=== PATIENT | female | born 1990 | race Caucasian/White ===

== ENCOUNTER 2021-09-02 18:24 | Emergency (ER) | payer OTHER, SELFPAY | END 2021-09-02 19:54 | disposition left against medical advice (07) | PROVIDERS: Emergency Provider Emergency Medicine; PCP Internal Medicine | DX: R42 Dizziness and giddiness (principal) ==

== ENCOUNTER 2021-09-03 11:36 | Emergency (ER) | payer OTHER, SELFPAY ==
--- NOTE | ~2021-09-03 | CT_ITS ---
EXAMINATION: CT HEAD WITHOUT CONTRAST CLINICAL INFORMATION: Worsening vertigo and headache. COMPARISON: None TECHNIQUE: Contiguous axial imaging was performed from the skull base to vertex without intravenous administration of contrast. This CT examination was performed using dose optimization techniques as appropriate, variously including the following: *Automated exposure control *Adjustment of mA and/or kV according to patient size (this includes techniques or standardized protocols for targeted exams where dose is matched to indication/reason for exam; i.e. extremities or head) *Use of iterative reconstruction technique DLP: 684.2 mGy-cm FINDINGS: There is no evidence of acute intracranial hemorrhage or territorial infarction. No abnormal mass effect or midline shift is seen. Mcwilliams to white matter differentiation is well preserved. No extra-axial fluid collections are identified. The ventricles are normal in size. There is no abnormal attenuation within the brain parenchyma. The osseous structures and soft tissues are normal. The mastoid air cells and visualized portions of the paranasal sinuses are well aerated. CT/CT head/brain wo con IMPRESSION: No acute intracranial pathology.
[2021-09-03 12:03] VITALS: BP 114/77; PULSE 66; RESP 16; TEMP 36.4; O2SAT 99; BMI 27.4
[2021-09-03] MEDS: LORazepam 1 MG TABLET PO (13:00)
--- NOTE | 2021-09-03 13:46 | ED_ITS ---
HPI - Neck Pain/Injury General Chief Complaint: Neck Pain/Injury Stated Complaint: NECK PAIN VERTIGO Time Seen by Provider: 09/03/21 12:26 Source: patient Mode of arrival: ambulatory History of Present Illness HPI Narrative: 30-year-old female with a past medical history of anemia, migraines, neck pain, vertigo, to the ED complaining of acute on chronic neck pain and acute on chronic vertigo x weeks. Reports her neck pain exacerbates he r room spinning vertigo. Dizziness is elicited on position changes/head movement. Admits symptoms have been worsening over the past 3 weeks with associated headaches and paresthesias in hands. Denies visual change/loss, nausea, vomiting, CP/SOB, abdominal pain, LE edema, recent travel, weakness Reports she sees an ENT and neurologist, has been getting cortisone shots and neck. Denies taking any vertigo medications at home. Takes today Tizanidine occasionally for neck pain. Denies direct injury/trauma or fall, urinary incontinence/retention. MD complaint: neck pain Related Data Previous Rx's Medication Instructions Recorded meclizine 25 mg tablet 25 mg PO TID PRN #14 tab 09/03/21 Allergies Allergy/AdvReac Type Severity Reaction Status Date / Time acetaminophen [From Percocet] Allergy Dizziness Verified 09/03/21 12:07 oxycodone [From Percocet] Allergy Dizziness Verified 09/03/21 12:07 Review of Systems Review of Systems: Constitutional: No Fever, No Chills, No Fatigue, No Malaise ENT/Mouth: No Ear Pain, No Nasal Congestion, No Hoarseness, No sore throat, No Rhinorrhea Eyes: No Eye Pain, No Swelling, No Redness, No Vision Changes Cardiovascular: No Chest Pain, No SOB, No Palpitations Respiratory: No Cough, No Dyspnea Gastrointestinal: No Nausea, No Vomiting, No Diarrhea, No Constipation, No Abdominal pain Genitourinary: No Dysuria, No Urinary Frequency, No Hematuria, No Urinary Incontinence/retention, No Flank Pain Musculoskeletal: +neck pain, No Myalgias, No Joint Swelling Skin: No Skin Lesions, No rash Neuro: No Weakness, No Numbness, + Paresthesias, No Loss of Consciousness, + Dizziness, + Headache Yes all other systems are reviewed and are negative Neurologic: Denies Abnormal speech present [facility] Past Medical History Attestation statement: The following information was validated with the patient. Medical History (Updated 09/03/21 @ 15:06 by KENIA Mccarthy) Anemia Migraines Neck pain Vertigo Social History Social History Advance Directives: No Advance Directives Information Provided: No Patient : No Physical Exam Vital Signs: Vital Signs: Last Vital Signs Temp 97.5 F 09/03/21 12:03 Pulse 66 09/03/21 12:03 Resp 16 09/03/21 12:03 BP 114/77 09/03/21 12:03 Pulse Ox 99 09/03/21 12:03 Body Mass Index 27.4 Const: General: cooperative, healthy appearing and no acute distress Orientation/consciousness: patient oriented x3 Limitations: no limitations HENMT: Head: Yes normal to inspection and Yes atraumatic Ears: hearing grossly normal bilaterally General nose exam: Normal external nose present Face and sinus: Yes normal facial exam Mouth: Normal oral and palatal mucosa present Eyes: General: appearance normal, both eyes and all related structures Pupils: Equal, round and reactive pupils present EOM: EOMs intact bilaterally Neck: Other: No midline cervical spinous tenderness. + bilateral paraspinal of the skin tenderness Neck: Yes normal visual inspection and Yes no meningeal signs Resp: Effort & Inspection: normal respiratory effort and no respiratory distress Cardio: Rate: regular rate Heart sounds: S1 normal heart sound present and S2 normal heart sound present GI: Inspection: Yes normal to inspection Palpation (GI): Soft to palpation, nontender, no guarding and not rigid Back/Spine/Pelvis: Other: No midline thoracic/lumbar spinous tenderness Skin: Rashes: no rashes Wounds: no wounds Neuro: Other: Dizziness elicited on position changes General: patient oriented x3, gait normal, tone normal, moves all extremities, no meningeal signs, no focal motor deficits and CN's II-XI intact bilaterally Cranial nerves: Yes Equal, round and reactive pupils present Cognition (Neuro): normal cognition Speech: No Abnormal speech present Gait exam (Neuro): Normal gait present Motor exam (neuro): 5/5 motor strength present throughout Coordination: [id number] test normal Romberg Test: Negative Extrem: General: Yes normal to inspection Course Course Course Narrative: -patient initially refusing meclizine. Will try Ativan for dizziness CT head/brain wo con IMPRESSION: No acute intracranial pathology. > patient reports mild symptomatic improvement after p.o. Ativan. Is now agreeable to take p.o. meclizine. Had lengthy discussion about worrisome signs and symptoms/strict return precautions and need follow-up MDM - Neck Pain/Injury MDM Narrative Medical decision making narrative: 30-year-old female with a past medical history of anemia, migraines, neck pain, vertigo, to the ED complaining of acute on chronic neck pain and acute on chronic vertigo x weeks. On exam VSS, NAD/well-appearing. Dizziness is positional, and elicited on position changes. No midline spinous tenderness throughout. Likely acute on chronic symptoms and BPPV. Low concern for SAH, meningitis/encephalitis or CVT. Patient/partner requesting head CT Discussed with patient she needs to follow-up with her ENT/neurologist and PCP my symptoms are acute on chronic which she has been dealing with for years Plan: Head CT, symptomatic treatment, reassess Medical Records Attestation: I reviewed the patient's medical records. Lab Data Attestation: I reviewed the patient's lab results. Discharge Plan Discharge Clinical Impression: Chronic vertigo, Chronic neck pain Patient Disposition: Home, Self-Care Instructions: Dizziness (ED), Chronic Neck Pain (DC) Additional Instructions: Your head CT was unremarkable Meclizine will help with your dizziness Is important for you to continue follow-up with your ENT specialist and neurologist. Continue taking home prescribed medications If her symptoms persist or worsen, develops weakness, numbness, visual change/loss, constant or worsening headaches please return to the ED immediately Prescriptions: New meclizine 25 mg tablet 25 mg PO TID PRN (Reason: dizziness) Qty: 14 RF: 0 Referrals: Tomy Maria [Physician] - 2 days Ciara Ahmadi PA-C [Physician [employer] Super[employer]] - 2 days Interventions: ED Discharge Assessment Last Done: 09/03/21 15:14 Discharge Date/Time: 09/03/21 15:14
[2021-09-03] MEDS: Meclizine HCl 25 MG TABLET PO (15:08)
== END 2021-09-03 15:14 | disposition home or self-care (01) ==
PROVIDERS: Emergency Provider Emergency Medicine; PCP Internal Medicine
DX: R42 Dizziness and giddiness (principal); G89.29 Other chronic pain; M54.2 Cervicalgia
CPT/HCPCS: 70450; 99283; 99284

== ENCOUNTER → 2021-11-28 09:03 | Outpatient (BNVA) | payer OTHER, SELFPAY | PROVIDERS: PCP Internal Medicine; Visit Provider Nurse Practitioner Family | DX: G47.9 Sleep disorder, unspecified (principal); G47.19 Other hypersomnia; R25.1 Tremor, unspecified; H81.10 Benign paroxysmal vertigo, unspecified ear; R43.8 Other disturbances of smell and taste; U09.9 Post COVID-19 condition, unspecified | CPT/HCPCS: 99212 ==

== ENCOUNTER → 2021-12-07 14:01 | Outpatient (BNVA) | payer OTHER, SELFPAY | PROVIDERS: PCP Internal Medicine; Visit Provider Nurse Practitioner Family | DX: G43.109 Migraine with aura, not intractable, without status migrainosus (principal); H81.10 Benign paroxysmal vertigo, unspecified ear | CPT/HCPCS: 99212 ==

== ENCOUNTER → 2022-01-12 14:07 | Outpatient (REF) | payer OTHER, SELFPAY | LOC: HO.SL 14:07 | PROVIDERS: Visit Provider Nurse Practitioner Family | DX: R06.83 Snoring (principal); G47.9 Sleep disorder, unspecified | CPT/HCPCS: 95806 ==

== ENCOUNTER → 2022-03-08 08:34 | Outpatient (BNVA) | payer OTHER, SELFPAY | PROVIDERS: PCP Internal Medicine; Visit Provider Nurse Practitioner Family | DX: Z13.89 Encounter for screening for other disorder (principal) ==

== ENCOUNTER → 2022-07-31 09:01 | Outpatient (BNVA) | payer OTHER, SELFPAY | PROVIDERS: PCP Internal Medicine; Visit Provider Nurse Practitioner Family | DX: G43.109 Migraine with aura, not intractable, without status migrainosus (principal); M54.2 Cervicalgia; H81.10 Benign paroxysmal vertigo, unspecified ear; R51.9 Headache, unspecified | CPT/HCPCS: 99212 ==

== ENCOUNTER → 2022-09-29 07:35 | Outpatient (BNVA) | payer OTHER, SELFPAY | PROVIDERS: PCP Internal Medicine; Visit Provider Student in an Organized Health Care Education/Training Program | DX: M79.7 Fibromyalgia (principal) | CPT/HCPCS: 99202 ==

== ENCOUNTER 2022-10-05 08:00 | Outpatient (RCR) | payer OTHER, SELFPAY ==
--- NOTE | 2022-11-08 09:17 | MHC.PT.DC ---
[facility] [place] Office [place] Office [place] Office [address] Shirley Ma [address] [facility] [phone] F: [phone] F: [phone] F: [phone] F: [phone] Physical Therapy Discharge Report Diagnosis: VERTIGO, MIGRAINES, NECK PAIN Date of Surgery: Date of Evaluation: 09/07/22 Date of Discharge: 10/11/22 Treatments to Date: 7 Cancellations to Date: 1 No Shows to Date: 2 Discharge Status: Discharge Summary: At last attended visit, Iraida had some improvement in symptoms and reported that TENS did improve her pain. We recommended that she complete her HEP more frequently and pursue an OTC home TENS unit. Electronically signed by: Angi Hackett PT, DPT Please sign and return to therapist. Thank you for your referral.
== END 2022-11-08 09:17 | disposition home or self-care (01) ==
LOC: HO.PT 08:00
PROVIDERS: PCP Internal Medicine; Visit Provider Nurse Practitioner Family
DX: G43.109 Migraine with aura, not intractable, without status migrainosus (principal); H81.10 Benign paroxysmal vertigo, unspecified ear; M54.2 Cervicalgia
CPT/HCPCS: 97110; 97112; 97140; 97162

== ENCOUNTER 2022-11-10 11:59 | Outpatient (REF) | payer OTHER, SELFPAY ==
[2022-11-10 17:19] LABS: Influenza A PCR NEGATIVE (Negative); Influenza B PCR NEGATIVE (Negative); Resp Syncy Virus RNA Qual PCR NEGATIVE (Negative); SARS COV2 PCR INHOUSE NEGATIVE (Negative)
== END 2022-11-10 12:00 | disposition home or self-care (01) ==
LOC: HO.LAB 11:59
PROVIDERS: Visit Provider Family Medicine
DX: Z20.822 Contact with and (suspected) exposure to COVID-19 (principal); R05.9 Cough, unspecified
CPT/HCPCS: 0241U

== ENCOUNTER → 2022-11-27 22:31 | Outpatient (REF) | payer OTHER, SELFPAY | LOC: HO.SL 22:31 | PROVIDERS: PCP Internal Medicine; Visit Provider Nurse Practitioner Family | DX: R06.83 Snoring (principal); R51.9 Headache, unspecified; G47.19 Other hypersomnia | CPT/HCPCS: 95810 ==

== ENCOUNTER 2023-06-12 12:39 | Emergency (ER) | payer OTHER, SELFPAY ==
--- NOTE | ~2023-06-12 | XR_ITS ---
EXAMINATION: XR CHEST CLINICAL INFORMATION: Shortness of breath. COMPARISON: None available. TECHNIQUE: 2 views of the chest were obtained. FINDINGS: No significant abnormality is noted involving the heart, lungs, mediastinum, bony thorax or soft tissues. XR/XR chest 2V IMPRESSION: No acute cardiopulmonary process.
--- NOTE | 2023-06-12 12:40 | ECG_ITS ---
Test Reason : cp sob Blood Pressure : / mmHG Vent. Rate : 069 BPM Atrial Rate : 069 BPM P-R Int : 160 ms QRS Dur : 082 ms QT Int : 368 ms P-R-T Axes : 033 070 018 degrees QTc Int : 394 ms Normal sinus rhythm Normal ECG No previous ECGs available Referred By: Dez Goldstein Electronically Signed By:MONICA MCGRAW MD
--- NOTE | 2023-06-12 12:55 | ED.GENADULT ---
HPI - General Adult General Chief complaint: Arrhythmia/Palpitations Stated complaint: Heart Palpitations SOB Time Seen by Provider: 06/12/23 17:21 Source: patient Mode of arrival: ambulatory Limitations: no limitations History of Present Illness HPI narrative: Patient comes in the emergency room complaining of palpitations. Patient states that for last couple of days she has had intermittent extra beats. Patient denies chest pain or shortness of breath. Patient states that recently she was started on Advair, singular, prednisone and constantly takes albuterol. Patient states that she has no shortness of breath, her medications are helping control her asthma. Related Data Home Medications Medication Instructions Recorded Confirmed albuterol sulfate 90 mcg/actuation 1 inh inhalation QID 11/28/21 07/31/22 aerosol inhaler (ProAir HFA) epinephrine 0.15 mg/0.15 mL subcut 11/28/21 07/31/22 auto-injector (for 33 to 66 lb patients) fluticasone propionate 50 1 spray intranasal DAILY 11/28/21 07/31/22 mcg/actuation nasal spray,suspension (Flonase Allergy Relief) cholecalciferol (vitamin D3) 10 10 mcg PO DAILY 03/08/22 05/05/22 mcg (400 unit) capsule cephalexin 500 mg capsule 500 mg PO QID 09/29/22 cyclobenzaprine 5 mg tablet 5 mg PO TID PRN 11/10/22 Previous Rx's Medication Instructions Recorded atogepant 30 mg tablet 30 mg PO .COMPLEX 30 days #30 tabs 03/08/22 frovatriptan 2.5 mg tablet 2.5 mg PO .COMPLEX PRN migraine 05/16/22 headache 30 days #12 tabs fremanezumab-vfrm 225 mg/1.5 mL 225 mg (1.5 mL) subcut .COMPLEX 30 05/26/22 subcutaneous auto-injector (Ajovy) days #1.5 mL rizatriptan 10 mg tablet 5 - 10 mg PO Q2H PRN migraine 06/12/22 headache 30 days #12 tabs azithromycin 250 mg tablet See Rx Instructions PO .COMPLEX 5 11/10/22 (Zithromax Z-Armani) days #6 tabs prednisone 20 mg tablet 40 mg PO DAILY 5 days #10 tabs 11/10/22 Allergies Allergy/AdvReac Type Severity Reaction Status Date / Time oxycodone [From Percocet] Allergy Dizziness Verified 11/10/22 11:34 Review of Systems Review of Systems: Constitutional : No Weight loss, No Fever, No Chills, No Night Sweats, No Fatigue, No Malaise ENT/Mouth : No Hearing loss, No Ear Pain, No Nasal Congestion, No Sinus Pain, No Hoarseness, No sore throat, No Rhinorrhea, No Swallowing Difficulty Eyes: No Eye Pain, No Swelling, No Redness, No Foreign Body, No Discharge, No Vision Changes Cardiovascular : No Chest Pain, No SOB, No Dyspnea on Exertion, No Orthopnea, No Edema, complaining of Palpitations Respiratory : No Cough, No Sputum, No Wheezing, No Smoke Exposure, No Dyspnea Gastrointestinal : No Nausea, No Vomiting, No Diarrhea, No Constipation, No abdominal Pain, No Hematochezia, No Melena Genitourinary : no irregular bleeding, No Dysuria, No Urinary Frequency, No Hematuria, No Urinary Incontinence, No Urgency, No Flank Pain, No Urinary Flow Changes, No Hesitancy Musculoskeletal : No joint pain, No Myalgias, No Joint Swelling Skin : No Skin Lesions, No rash Neuro : No Weakness, No Numbness, No Paresthesias, No Loss of Consciousness, No Dizziness, No Headache Psych : No Anxiety/Panic, No Depression, No SI/HI/AH/VH, No Social Issues, Heme/Lymph: No Bruising, No Bleeding,No Lymphadenopathy Endocrine : No Polyuria, No Polydipsia, No Temperature Intolerance PMFSH Past Medical History Medical History Anemia Migraines Neck pain Vertigo Surgical History H/O nasal septoplasty H/O wisdom tooth extraction Family History Family History Mother Bipolar 1 disorder Diabetes Maternal Grandmother COPD (chronic obstructive pulmonary disease) Other Family history of heart disease Family history of lung disease Social History Social History Household Members: Significant Other Alcohol intake: current Alcohol intake frequency: a few times a week Patient Tobacco Use Status: Never used Tobacco Current occupational status: employed 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 Oriented X3. No acute distress. Eyes: Pupils equal, round and reactive to light. ENT: Pharynx normal. Neck: Normal inspection. Neck supple. No lymph nodes noted. No crepitus CVS: Normal heart rate and rhythm., very occasional PVCs without any pattern, Pulses normal. Normal S1 and S2 Respiratory: No respiratory distress. Breath sounds normal. No Wheezing. No rales Abdomen: Soft and nontender. No rigidity. No distention. Skin: Skin warm and dry. Normal skin color. Normal skin turgor. Extremities: No lower extremity edema. No Lacerations. No Rash Neuro: Oriented X 3. No motor deficit. No sensory deficit. Moving all extremities. No slurred speech. CN 2 through 12 grossly intact Psych: calm, cooperative, normal affect Course Course Course Narrative: RME- 32-year-old female presents for evaluation of shortness of breath, palpitations. She saw her doctor at the end of last week and was diagnosed with ?bronchitis. ? She was sent home with prednisone and a new inhaler. Plan for labs, chest x-ray, EKG. Patient is not on control Medical Decision Making Medical Decision Making MDM Narrative: -when patient arrived, patient reported that her Apple watch said that she has atrial fibrillation. Patient complaining of palpitations. Initially admission was considered. -EKG my interpretation: Normal sinus rhythm, heart rate 69, no ST segment depression or elevation, no T-wave inversion, QTC 394 -I discussed the physical exam with the patient, patient's airway is completely open, no wheezing -patient does have occasional PVCs, nonsustained -this is likely as a side effect of her medications. Patient instructed to keep taking her medications as it is important to keep her airway open -patient already stopped taking prednisone couple of days ago, no need to restart at this time, airway open. -patient keeps having PVCs, patient instructed to follow-up with the primary care physician, patient may need a referral for a Holter monitor -also, I discussed with the patient that apple watches are not sensitive enough to determine a specific rhythm. Patient has been on the monitor for hours and she does have PVCs but no atrial fibrillation. Differential Diagnosis Differential Diagnoses: The differential diagnosis associated with the presentation includes (PVCs, tachycardia, SVT, hyperthyroidism) Admission/Observation Consideration of admission/observation: Escalation of care including admission/observation considered Lab Data MDM Lab Attestation statement: I reviewed the patient's lab results. (Interpretation of labs, troponin negative) 06/12/23 15:20 06/12/23 15:21 Labs: Lab Results 06/12/23 06/12/23 06/12/23 Range/Units 15:20 15:20 15:20 WBC 7.5 (4.8-10.8) X10*3/uL RBC 4.62 (4.20-5.50) X10*6/uL Hgb 12.8 (12.0-16.0) g/dl Hct 39.1 (37.0-47.0) % MCV 84.6 (80.0-98.0) fL MCH 27.7 (27.0-33.0) pg MCHC 32.7 (31.0-35.0) g/dl RDW 14.0 (11.0-16.0) % Plt Count 251 (160-400) X10*3/uL MPV 11.3 (9.4-12.3) fL Immature Gran % (Auto) 0.7 H (0.0-0.4) % Neut % (Auto) 51.6 (45-73) % Lymph % (Auto) 39.3 (20-40) % [place] % (Auto) 6.9 (2-11) % Eos % (Auto) 1.2 (0-4) % Baso % (Auto) 0.3 (0-2) % Lymph # (Auto) 3.0 (1.2-4.9) X10*3/uL [place] # (Auto) 0.5 (0.1-1.2) X10*3/uL Eos # (Auto) 0.1 (0.0-0.4) X10*3/uL Baso # (Auto) 0.0 (0.0-0.2) X10*3/uL Abs Immat Gran (auto) 0.05 H (0.00-0.03) X10*3/uL Absolute Neuts (auto) 3.9 (2.0-8.3) x10*3/uL Absolute Nucleated RBC 0.000 (0.0-0.012) X10*3/uL Nucleated RBC % (auto) 0.0 (0.0-0.2) /100WBC PT 11.5 (11.1-13.3) SEC INR 0.9 (0.9-1.1) APTT 26.0 (26.0-36.4) SEC Sodium (135-145) mmol/L Potassium (3.3-5.1) mmol/L Chloride (96-108) mmol/L Carbon Dioxide (22-29) mmol/L Anion Gap (12-20) BUN (9-16) mg/dL Creatinine (0.5-1.4) mg/dL Estim Creat Clear Calc Estimated GFR Random Glucose (60-115) mg/dL Calcium (8.4-10.2) mg/dL Magnesium (1.6-2.6) mg/dL Total Bilirubin (0.0-1.0) mg/dL AST (5-31) U/L ALT (0-31) U/L Alkaline Phosphatase (39-117) U/L Troponin I High Sens < 2.7 (<3.5-17.0) ng/L Total Protein (6.5-8.0) g/dL Albumin (3.5-5.0) g/dL Lipase (8-78) U/L TSH (0.32-4.0) uIU/mL 06/12/23 Range/Units 15:21 WBC (4.8-10.8) X10*3/uL RBC (4.20-5.50) X10*6/uL Hgb (12.0-16.0) g/dl Hct (37.0-47.0) % MCV (80.0-98.0) fL MCH (27.0-33.0) pg MCHC (31.0-35.0) g/dl RDW (11.0-16.0) % Plt Count (160-400) X10*3/uL MPV (9.4-12.3) fL Immature Gran % (Auto) (0.0-0.4) % Neut % (Auto) (45-73) % Lymph % (Auto) (20-40) % [place] % (Auto) (2-11) % Eos % (Auto) (0-4) % Baso % (Auto) (0-2) % Lymph # (Auto) (1.2-4.9) X10*3/uL [place] # (Auto) (0.1-1.2) X10*3/uL Eos # (Auto) (0.0-0.4) X10*3/uL Baso # (Auto) (0.0-0.2) X10*3/uL Abs Immat Gran (auto) (0.00-0.03) X10*3/uL Absolute Neuts (auto) (2.0-8.3) x10*3/uL Absolute Nucleated RBC (0.0-0.012) X10*3/uL Nucleated RBC % (auto) (0.0-0.2) /100WBC PT (11.1-13.3) SEC INR (0.9-1.1) APTT (26.0-36.4) SEC Sodium 140 (135-145) mmol/L Potassium 3.5 (3.3-5.1) mmol/L Chloride 104 (96-108) mmol/L Carbon Dioxide 26 (22-29) mmol/L Anion Gap 14 (12-20) BUN 12 (9-16) mg/dL Creatinine 0.74 (0.5-1.4) mg/dL Estim Creat Clear Calc 110.9 Estimated GFR > 60 Random Glucose 80 (60-115) mg/dL Calcium 9.0 (8.4-10.2) mg/dL Magnesium 2.3 (1.6-2.6) mg/dL Total Bilirubin 0.9 (0.0-1.0) mg/dL AST 14 (5-31) U/L ALT 12 (0-31) U/L Alkaline Phosphatase 49 (39-117) U/L Troponin I High Sens (<3.5-17.0) ng/L Total Protein 7.2 (6.5-8.0) g/dL Albumin 4.2 (3.5-5.0) g/dL Lipase 44 (8-78) U/L TSH 1.03 (0.32-4.0) uIU/mL Independent Interpretation I performed an independent interpretation of an: Plain X-Ray (My interpretation of chest x-ray: No infiltrates) Radiology Impression Discussion of test interpretation with radiology: I have reviewed the radiologist's reading. Radiologist Impression: FINDINGS: No significant abnormality is noted involving the heart, lungs, mediastinum, bony thorax or soft tissues. XR/XR chest 2V IMPRESSION: No acute cardiopulmonary process. Prescription Management I considered prescription management with: Other (Consider starting metoprolol. However, patient is on several new medications for asthma which may be contributing to her symptoms. Patient will follow-up with her primary care physician) Chronic Conditions Patient?s care impacted by: Other (Asthma) Discharge Plan Discharge Clinical Impression: Frequent PVCs Patient Disposition: Home, Self-Care Instructions: Heart Palpitations (ED) Additional Instructions: Please follow-up with your primary care physician tomorrow. If you have any worsening or new symptoms, please return to the emergency room or call 911 Prescriptions: No Action frovatriptan 2.5 mg tablet 2.5 mg PO .COMPLEX PRN (Reason: migraine headache) 30 Days Qty: 12 3RF Rx Instructions: start 2 days prior to onset of menses, may take up to 6 days Ajovy Autoinjector 225 mg/1.5 mL auto-injector 225 mg subcut .COMPLEX 30 Days Qty: 1.5 6RF Rx Instructions: 225 mg subcut monthly; rizatriptan 10 mg tablet 5 - 10 mg PO Q2H PRN (Reason: migraine headache) 30 Days Qty: 12 6RF Rx Instructions: max 2 tabs per day or 4 tabs per week (may take with Aleve) cyclobenzaprine 5 mg tablet 5 mg PO TID PRN azithromycin [Zithromax Z-Armani] 250 mg tablet See Rx Instructions PO .COMPLEX 5 Days Qty: 6 0RF Rx Instructions: take 500 mg today (day 1), then 250 mg for 4 days (days 2-5) PO prednisone 20 mg tablet 40 mg PO DAILY 5 Days Qty: 10 0RF epinephrine 0.15 mg/0.15 mL auto-injector subcut fluticasone propionate [Flonase Allergy Relief] 50 mcg/actuation spray,suspension 1 spray intranasal DAILY Rx Instructions: administer into each nostril albuterol sulfate [ProAir HFA] 90 mcg/actuation HFA aerosol inhaler 1 inh inhalation QID cholecalciferol (vitamin D3) 10 mcg (400 unit) capsule 10 mcg PO DAILY atogepant 30 mg tablet 30 mg PO .COMPLEX 30 Days Qty: 30 6RF Rx Instructions: 30 mg PO nightly; Quilipta complete form completed. cephalexin 500 mg capsule 500 mg PO QID
[2023-06-12 12:56] VITALS: BP 127/84; PULSE 67; RESP 18; TEMP 36.1; O2SAT 99; BMI 26.2
[2023-06-12 15:25] LABS: MANUAL DIFF FLAG NO
[2023-06-12 15:30] LABS: Basophils Percent Auto 0.3 % (0-2); Eosinophils Absolute Auto 0.1 X10*3/uL (0.0-0.4); Eosinophils Percent Auto 1.2 % (0-4); Hematocrit 39.1 % (37.0-47.0); Hemoglobin 12.8 g/dl (12.0-16.0); Imm Gran Abs Auto 0.05 X10*3/uL (0.00-0.03); Imm Gran Pct Auto 0.7 % (0.0-0.4); Lymphocytes Percent Auto 39.3 % (20-40); Mean Corpuscular HGB Conc 32.7 g/dl (31.0-35.0); Mean Corpuscular Hemoglobin 27.7 pg (27.0-33.0); Mean Corpuscular Volume 84.6 fL (80.0-98.0); Mean Platelet Volume 11.3 fL (9.4-12.3); Monocytes Absolute Auto 0.5 X10*3/uL (0.1-1.2); Monocytes Percent Auto 6.9 % (2-11); Neutrophils Absolute Auto 3.9 x10*3/uL (2.0-8.3); Neutrophils Percent Auto 51.6 % (45-73); Platelet Count 251 X10*3/uL (160-400); Red Blood Count 4.62 X10*6/uL (4.20-5.50); White Blood Count 7.5 X10*3/uL (4.8-10.8)
[2023-06-12 15:33] LABS: INTERNATIONAL NORM RATIO 0.9 (0.9-1.1); Prothrombin Time 11.5 SEC (11.1-13.3)
[2023-06-12 16:25] LABS: Alanine Aminotransferase 12 U/L (0-31); Albumin Level 4.2 g/dL (3.5-5.0); Alkaline Phosphatase 49 U/L (39-117); Anion Gap 14 (12-20); Aspartate Amino Transferase 14 U/L (5-31); Bilirubin Total 0.9 mg/dL (0.0-1.0); Blood Urea Nitrogen 12 mg/dL (9-16); Carbon Dioxide 26 mmol/L (22-29); Chloride 104 mmol/L (96-108); Creatinine Clr Calc Pharmacy 110.9; Estimated Glomerular Filt Rate > 60; Glucose Random 80 mg/dL (60-115); Lipase 44 U/L (8-78); Magnesium 2.3 mg/dL (1.6-2.6); Potassium 3.5 mmol/L (3.3-5.1); Sodium 140 mmol/L (135-145); Total Protein 7.2 g/dL (6.5-8.0)
[2023-06-12 16:26] LABS: Troponin-I High Sensitivity < 2.7 ng/L (<3.5-17.0)
[2023-06-12 16:40] LABS: TSH reflex Free T4 1.03 uIU/mL (0.32-4.0)
[2023-06-12 17:18] VITALS: BP 120/68; PULSE 68; RESP 18; TEMP 37.1; O2SAT 100
--- NOTE | 2023-06-12 17:25 | PC.NURSE ---
pt a&ox3. respirations even and unlabored. pt reports increasing shortness of breath and chest pain within the last few days. pt was put on an inhaler and prednisone from PCP. pt normal sinus on tele. vss.
== END 2023-06-12 17:49 | disposition home or self-care (01) ==
LOC: HO.ED 17:47
PROVIDERS: Physician Assistant; Emergency Provider Emergency Medicine; PCP Internal Medicine
DX: I49.3 Ventricular premature depolarization (principal); R00.2 Palpitations; J45.909 Unspecified asthma, uncomplicated; H81.10 Benign paroxysmal vertigo, unspecified ear; Z79.899 Other long term (current) drug therapy
CPT/HCPCS: 36415; 71046; 80053; 83690; 83735; 84443; 84484; 85025; 85610; 85730; 93005; 99283; 99284

== ENCOUNTER → 2023-06-12 12:40 | Outpatient (BNV) | payer OTHER, SELFPAY | PROVIDERS: PCP Internal Medicine; Visit Provider Internal Medicine Cardiovascular Disease | DX: R07.9 Chest pain, unspecified (principal); R06.02 Shortness of breath | CPT/HCPCS: 93010 ==

== ENCOUNTER 2023-09-21 17:57 | Emergency (ER) | payer OTHER, SELFPAY ==
--- NOTE | 2023-09-21 18:05 | ED_ITS ---
HPI - General Adult General Chief complaint: General Medical Stated complaint: feels like fainting Time Seen by Provider: 09/21/23 20:34 Source: patient Mode of arrival: ambulatory Limitations: no limitations History of Present Illness HPI narrative: Patient is a 32 year old assigned female at with a history of migraines and vertigo presenting to the emergency department today with vomiting and feeling off . Patient states that this morning she woke up and vomited then felt off all day. Patient denies any current dizziness, lightheadedness, abdominal pain, fever, chills, blurry vision, double vision, loss of vision, chest pain, difficulty breathing, shortness of breath, back pain, night sweats, pain with urination, increased urinary frequency, increased urinary urgency, blood in her urine or stool, syncope or a near syncopal episode, recent trauma or falls, bowel incontinence, bladder incontinence, bowel retention, bladder retention, or any other complaints at this time. Onset (ago): hour(s) Severity: mild Relieving factors: none Exacerbating factors: none Associated symptoms: nausea/vomiting Treatments prior to arrival: none Related Data Home Medications Medication Instructions Recorded Confirmed albuterol sulfate 90 mcg/actuation 1 inh inhalation QID 11/28/21 07/31/22 aerosol inhaler (ProAir HFA) epinephrine 0.15 mg/0.15 mL subcut 11/28/21 07/31/22 auto-injector (for 33 to 66 lb patients) fluticasone propionate 50 1 spray intranasal DAILY 11/28/21 07/31/22 mcg/actuation nasal spray,suspension (Flonase Allergy Relief) cholecalciferol (vitamin D3) 10 10 mcg PO DAILY 03/08/22 05/05/22 mcg (400 unit) capsule cephalexin 500 mg capsule 500 mg PO QID 09/29/22 cyclobenzaprine 5 mg tablet 5 mg PO TID PRN 11/10/22 Previous Rx's Medication Instructions Recorded atogepant 30 mg tablet 30 mg PO .COMPLEX 30 days #30 tabs 03/08/22 frovatriptan 2.5 mg tablet 2.5 mg PO .COMPLEX PRN migraine 05/16/22 headache 30 days #12 tabs fremanezumab-vfrm 225 mg/1.5 mL 225 mg (1.5 mL) subcut .COMPLEX 30 05/26/22 subcutaneous auto-injector (Ajovy) days #1.5 mL rizatriptan 10 mg tablet 5 - 10 mg (0.5 - 1 x 10 mg) PO Q2H 06/12/22 PRN migraine headache 30 days #12 tabs azithromycin 250 mg tablet See Rx Instructions PO .COMPLEX 5 11/10/22 (Zithromax Z-Armani) days #6 tabs prednisone 20 mg tablet 40 mg (2 x 20 mg) PO DAILY 5 days 11/10/22 #10 tabs ondansetron 4 mg disintegrating 4 mg PO Q8H 3 days #9 tabs 09/21/23 tablet Allergies Allergy/AdvReac Type Severity Reaction Status Date / Time oxycodone [From Percocet] Allergy Dizziness Verified 11/10/22 11:34 Review of Systems 2 Constitutional: Constitutional: Reports no additional constitutional complaints, Denies chills, Denies fever(s) and Denies night sweats Eyes: Eyes: Reports no additional eye complaints, Denies blurry vision, Denies change in vision, Denies diplopia, Denies eye discharge, Denies loss of vision and Denies eye pain ENT: Denies dizziness Cardiovascular: Cardiovascular: Reports no additional cardiovascular complaints, Denies chest pain, Denies lightheadedness, Denies Loss of Consciousness and Denies dyspnea Respiratory: Respiratory: Reports no additional respiratory complaints and Denies dyspnea Gastrointestinal: Gastrointestinal: Reports no additional gastrointestinal complaints, Denies abdominal pain, Denies melena, Denies hematochezia, Denies change in bowel habits, Denies change in stool character, Reports nausea and Reports vomiting Genitourinary: Genitourinary: Denies hematuria, Denies urinary frequency, Denies dysuria, Denies urinary incontinence, Denies urinary hesitancy and Denies urinary urgency Musculoskeletal: Musculoskeletal: Reports no additional musculoskeletal complaints, Denies numbness and Denies tingling Neurologic: Denies dizziness, Denies loss of vision, Denies numbness and Denies tingling Psychiatric: Psychiatric: Reports no additional psychiatric complaints Endocrine: Endocrine: Reports no additional endocrine complaints Hematologic/Lymphatic: Hematologic/Lymphatic: Reports no additional hematologic/lymphatic complaints Allergic/Immunologic: Allergic/Immunologic: Reports no additional allergic/immunologic complaints PMFSH Past Medical History Attestation statement: The following information was validated with the patient. Source: old records reviewed and nursing notes reviewed Medical History Cough Bronchitis Chest congestion Abdominal pain Excessive daytime sleepiness Headache, unspecified Migraines Anemia Neck pain Vertigo Surgical History H/O wisdom tooth extraction H/O nasal septoplasty Family History Family History Mother Bipolar 1 disorder Diabetes Maternal Grandmother COPD (chronic obstructive pulmonary disease) Other Family history of heart disease Family history of lung disease Social History Social History Household Members: Significant Other Alcohol intake: current Alcohol intake frequency: holidays/special occasions only Patient Tobacco Use Status: Never used Tobacco Smoked in Last 30 Days: No Use of substances other than those prescribed or required for medical reasons: No Advance Directives: No Advance Directives Information Provided: No Patient : No Current occupational status: employed 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 Physical Exam ED Vital Signs: Vital Signs - 24 hr 09/21/23 18:06 Temperature 98.9 F Pulse Rate 80 Respiratory Rate 18 Blood Pressure 130/89 Pulse Oximetry 100 Oxygen Delivery Method Room Air BMI result Body Mass Index 25.0 Const General: cooperative, no acute distress, alert and awake Nutritional Appearance: well nourished Orientation/consciousness: patient oriented x3 Limitations: no limitations HENMT Head: Yes normal to inspection and Yes atraumatic Ears: hearing grossly normal bilaterally and external ears normal General nose exam: Normal external nose present, no nasal discharge noted and no epistaxis Face and sinus: Yes normal facial exam, No abrasion and No laceration Mouth: Normal oral and palatal mucosa present, no drooling and no muffled voice Eyes General: appearance normal, both eyes and all related structures Periorbital: periorbital findings normal Eyelids: Yes eyelids normal Conjunctivae: conjunctivae normal Pupils: Equal, round and reactive pupils present EOM: EOMs intact bilaterally Neck Neck: Yes normal visual inspection, Yes full ROM and Yes no lymphadenopathy Chest Chest palpation & inspection: normal inspection of the chest Resp Effort & Inspection: normal respiratory effort and able to speak in complete sentences GI Inspection: Yes normal to inspection Palpation (GI): Soft to palpation, not firm, nontender, no guarding and not rigid Neuro General: patient oriented x3 and moves all extremities Cranial nerves: Yes Equal, round and reactive pupils present Cognition (Neuro): normal cognition Motor exam (neuro): 5/5 motor strength present throughout Sensory Exam: Normal double simultaneous stimulation for sensation Coordination: wcubax-ea-anys test normal Extrem General: Yes normal to inspection, Yes full ROM and Yes capillary refill normal Psych Appearance: grossly normal Mental Status: mental status grossly normal Affect: normal affect Attitude: cooperative Thought process: Normal thought process present Thought content: Normal thought content present Insight: Good insight present (Psych) Course Course Course Narrative: This is a rapid medical exam: Additional HPI, ROS, PE not included below will be deferred to primary provider. Patient is a 32-year-old female with history of fibromyalgia, asthma, migraines, vertigo presenting to the emergency department with complaint of feeling faint, lightheaded, nausea and vomiting since this morning. Also reports chest pain. Denies fevers, diarrhea, constipation. Has been able to tolerate water today. Plan: swab for flu/Covid, EKG, basic labs Medical Decision Making Medical Decision Making [facility] Narrative: Patient is a 32 year old assigned female at with a history of migraines and vertigo presenting to the emergency department today with nausea, vomiting, and feeling off . Patient's physical exam was unremarkable. Patient's blood work was unremarkable. Patient's EKG was unremarkable. I explained my physical exam findings as well as all test results to the patient. I answered all questions asked by the patient. I stressed the importance of the patient taking her medication as prescribed. I stressed the importance of the patient following up with her primary care provider. I stressed the importance of the patient returning to the emergency department immediately if her symptoms were to worsen or if she were to develop any dizziness, shortness of breath, difficulty breathing, chest pain, blurry vision, loss of vision, nausea, vomiting, abdominal pain, fever, chills, back pain, or any other complaints. Patient verbalized agreement and understanding with this treatment plan and discharge. Differential Diagnosis Differential Diagnoses: The differential diagnosis associated with the presentation includes Viral illness Nausea Vomiting Admission/Observation Consideration of admission/observation: Escalation of care including admission/observation considered Patient would have been admitted to the hospital had her work up had any findings where hospital admission was appropriate and her clinical presentation warranted hospital admission. Lab Data MDM Lab Attestation statement: I reviewed the patient's lab results. My interpretation of these studies and their corresponding values is that they are grossly normal. 09/21/23 18:50 09/21/23 18:50 Labs: Lab Results 09/21/23 Range/Units 18:50 WBC 9.2 (4.8-10.8) X10*3/uL RBC 4.79 (4.20-5.50) X10*6/uL Hgb 13.5 (12.0-16.0) g/dl Hct 40.5 (37.0-47.0) % MCV 84.6 (80.0-98.0) fL MCH 28.2 (27.0-33.0) pg MCHC 33.3 (31.0-35.0) g/dl RDW 12.0 (11.0-16.0) % Plt Count 267 (160-400) X10*3/uL MPV 11.1 (9.4-12.3) fL Immature Gran % (Auto) 0.5 H (0.0-0.4) % Neut % (Auto) 73.6 H (45-73) % Lymph % (Auto) 20.0 (20-40) % [place] % (Auto) 3.9 (2-11) % Eos % (Auto) 1.5 (0-4) % Baso % (Auto) 0.5 (0-2) % Lymph # (Auto) 1.8 (1.2-4.9) X10*3/uL [place] # (Auto) 0.4 (0.1-1.2) X10*3/uL Eos # (Auto) 0.1 (0.0-0.4) X10*3/uL Baso # (Auto) 0.1 (0.0-0.2) X10*3/uL Abs Immat Gran (auto) 0.05 H (0.00-0.03) X10*3/uL Absolute Neuts (auto) 6.8 (2.0-8.3) x10*3/uL Absolute Nucleated RBC 0.000 (0.0-0.012) X10*3/uL Nucleated RBC % (auto) 0.0 (0.0-0.2) /100WBC Sodium 139 (135-145) mmol/L Potassium 3.9 (3.3-5.1) mmol/L Chloride 102 (96-108) mmol/L Carbon Dioxide 27 (22-29) mmol/L Anion Gap 14 (12-20) BUN 10 (9-16) mg/dL Creatinine 0.66 (0.5-1.4) mg/dL Estim Creat Clear Calc 112.1 Estimated GFR > 60 Random Glucose 97 (60-115) mg/dL Calcium 9.3 (8.4-10.2) mg/dL Total Bilirubin 1.6 H (0.0-1.0) mg/dL AST 20 (5-31) U/L ALT 15 (0-31) U/L Alkaline Phosphatase 56 (39-117) U/L Troponin I High Sens < 2.7 (<3.5-17.0) ng/L Total Protein 8.0 (6.5-8.0) g/dL Albumin 4.8 (3.5-5.0) g/dL Beta HCG, Quant < 2 mIU/mL COVID-19 ([facility]ARA) Negative (Negative) COVID-19 Clin Com See Note Influenza Type A (GEM) Negative (Negative) Influenza Type B (GEM) Negative (Negative) Influenza A & B Note See Note Independent Interpretation I performed an independent interpretation of an: EKG Interpretation: Vent. Rate: 066 BPM Atrial Rate: 066 BPM P-R Int: 148 ms QRS Dur: 082 ms QT Int: 408 ms P-R-T Axes: 004 065 037 degrees QTc Int: 427 ms Normal sinus rhythm Normal ECG When compared with ECG of 12-JUN-2023 12:45, No significant change was found DD/ 1845 Discharge Plan Discharge Clinical Impression: Viral illness Patient Disposition: Home, Self-Care Instructions: Viral Syndrome (ED) Additional Instructions: Follow up with your primary care provider. Return to the emergency department immediately if your symptoms worsen or if you develop any dizziness, shortness of breath, difficulty breathing, chest pain, blurry vision, loss of vision, nausea, vomiting, abdominal pain, fever, chills, back pain, or any other complaints. Prescriptions: New ondansetron 4 mg tablet,disintegrating 4 mg PO Q8H 3 Days Qty: 9 0RF No Action frovatriptan 2.5 mg tablet 2.5 mg PO .COMPLEX PRN (Reason: migraine headache) 30 Days Qty: 12 3RF Rx Instructions: start 2 days prior to onset of menses, may take up to 6 days Ajovy Autoinjector 225 mg/1.5 mL auto-injector 225 mg subcut .COMPLEX 30 Days Qty: 1.5 6RF Rx Instructions: 225 mg subcut monthly; rizatriptan 10 mg tablet 5 - 10 mg PO Q2H PRN (Reason: migraine headache) 30 Days Qty: 12 6RF Rx Instructions: max 2 tabs per day or 4 tabs per week (may take with Aleve) cyclobenzaprine 5 mg tablet 5 mg PO TID PRN azithromycin [Zithromax Z-Armani] 250 mg tablet See Rx Instructions PO .COMPLEX 5 Days Qty: 6 0RF Rx Instructions: take 500 mg today (day 1), then 250 mg for 4 days (days 2-5) PO prednisone 20 mg tablet 40 mg PO DAILY 5 Days Qty: 10 0RF epinephrine 0.15 mg/0.15 mL auto-injector subcut fluticasone propionate [Flonase Allergy Relief] 50 mcg/actuation spray,suspension 1 spray intranasal DAILY Rx Instructions: administer into each nostril albuterol sulfate [ProAir HFA] 90 mcg/actuation HFA aerosol inhaler 1 inh inhalation QID cholecalciferol (vitamin D3) 10 mcg (400 unit) capsule 10 mcg PO DAILY atogepant 30 mg tablet 30 mg PO .COMPLEX 30 Days Qty: 30 6RF Rx Instructions: 30 mg PO nightly; Quilipta complete form completed. cephalexin 500 mg capsule 500 mg PO QID Referrals: Star Caro III, MD [Primary Care Provider] - Stand Alone Forms: Work/School Release Interventions: ED Discharge Assessment Last Done: 09/21/23 21:16 Discharge Date/Time: 09/21/23 21:17 Print Language: Tunisian
[2023-09-21 18:06] VITALS: BP 130/89; PULSE 80; RESP 18; TEMP 37.2; O2SAT 100; BMI 25.0
--- NOTE | 2023-09-21 18:07 | ECG_ITS ---
Test Reason : CHEST PAIN Blood Pressure : / mmHG Vent. Rate : 066 BPM Atrial Rate : 066 BPM P-R Int : 148 ms QRS Dur : 082 ms QT Int : 408 ms P-R-T Axes : 004 065 037 degrees QTc Int : 427 ms Normal sinus rhythm RSR' or QR pattern in V1 suggests right ventricular conduction delay Nonspecific T wave abnormality Abnormal ECG When compared with ECG of 12-JUN-2023 12:45, No significant change was found Referred By: Celine Keene Electronically Signed By:KRIS PEREZ MD
[2023-09-21 19:00] LABS: MANUAL DIFF FLAG NO
[2023-09-21 19:23] LABS: COVID-19 Test Negative (Negative); IDNOW Serial# 08D9AD1C; IDNOW Serial# BCCEAD1C; Influenza A Negative (Negative); Influenza B2 Negative (Negative)
[2023-09-21 19:33] LABS: Basophils Absolute Auto 0.1 X10*3/uL (0.0-0.2); Basophils Percent Auto 0.5 % (0-2); Eosinophils Absolute Auto 0.1 X10*3/uL (0.0-0.4); Eosinophils Percent Auto 1.5 % (0-4); Hematocrit 40.5 % (37.0-47.0); Hemoglobin 13.5 g/dl (12.0-16.0); Imm Gran Abs Auto 0.05 X10*3/uL (0.00-0.03); Imm Gran Pct Auto 0.5 % (0.0-0.4); Lymphocytes Absolute Auto 1.8 X10*3/uL (1.2-4.9); Mean Corpuscular HGB Conc 33.3 g/dl (31.0-35.0); Mean Corpuscular Hemoglobin 28.2 pg (27.0-33.0); Mean Corpuscular Volume 84.6 fL (80.0-98.0); Mean Platelet Volume 11.1 fL (9.4-12.3); Monocytes Absolute Auto 0.4 X10*3/uL (0.1-1.2); Monocytes Percent Auto 3.9 % (2-11); Neutrophils Absolute Auto 6.8 x10*3/uL (2.0-8.3); Neutrophils Percent Auto 73.6 % (45-73); Platelet Count 267 X10*3/uL (160-400); Red Blood Count 4.79 X10*6/uL (4.20-5.50); White Blood Count 9.2 X10*3/uL (4.8-10.8)
[2023-09-21 19:41] LABS: Alanine Aminotransferase 15 U/L (0-31); Albumin Level 4.8 g/dL (3.5-5.0); Alkaline Phosphatase 56 U/L (39-117); Anion Gap 14 (12-20); Aspartate Amino Transferase 20 U/L (5-31); Bilirubin Total 1.6 mg/dL (0.0-1.0); Blood Urea Nitrogen 10 mg/dL (9-16); Calcium 9.3 mg/dL (8.4-10.2); Carbon Dioxide 27 mmol/L (22-29); Chloride 102 mmol/L (96-108); Creatinine Clr Calc Pharmacy 112.1; Estimated Glomerular Filt Rate > 60; Glucose Random 97 mg/dL (60-115); HCG Quantitative < 2 mIU/mL; Potassium 3.9 mmol/L (3.3-5.1); Sodium 139 mmol/L (135-145); Troponin-I High Sensitivity < 2.7 ng/L (<3.5-17.0)
--- NOTE | 2023-09-21 20:32 | PC.NURSE ---
Pt reports feeling sick all day, nauseas with vomiting, lightheaded, and felt like she was gonna faint. Pt stated my heart felt weird when i went to work, very fluttery. Pt reports some chest pain and a headache. Pt reports last episode of vomiting was around 2pm. Pt states she was able to keep small sips of water, and crackers down when in the waiting room. Pt aware of plan.
== END 2023-09-21 21:17 | disposition home or self-care (01) ==
PROVIDERS: Registered Nurse Emergency; Emergency Provider Emergency Medicine; PCP Internal Medicine
DX: B34.9 Viral infection, unspecified (principal); R07.89 Other chest pain; Z11.52 Encounter for screening for COVID-19; Z20.822 Contact with and (suspected) exposure to COVID-19; Z79.899 Other long term (current) drug therapy
CPT/HCPCS: 80053; 84484; 84702; 85025; 87502; 87635; 93005; 99283; 99284

== ENCOUNTER → 2023-12-03 10:41 | Outpatient (RCR) | payer OTHER, SELFPAY | END | disposition home or self-care (01) | LOC: HO.PTCHIC 08-30 07:45 | PROVIDERS: PCP Internal Medicine; Visit Provider Nurse Practitioner Family | DX: G43.109 Migraine with aura, not intractable, without status migrainosus (principal); M54.2 Cervicalgia; H81.10 Benign paroxysmal vertigo, unspecified ear ==

== ENCOUNTER 2024-09-11 08:47 | Emergency (ER) | payer OTHER, SELFPAY ==
--- NOTE | ~2024-09-11 | CT_ITS ---
EXAMINATION: CT CERVICAL SPINE WITHOUT CONTRAST CLINICAL INFORMATION: Fall with head strike, on thinners COMPARISON: None available. TECHNIQUE: Contiguous axial imaging was performed from the upper chest through the skull base without intravenous administration of contrast. Coronal and sagittal reformats were obtained at the acquisition workstation. This CT examination was performed using dose optimization techniques as appropriate, variously including the following: *Automated exposure control *Adjustment of mA and/or kV according to patient size (this includes techniques or standardized protocols for targeted exams where dose is matched to indication/reason for exam; i.e. extremities or head) *Use of iterative reconstruction technique DLP: 369 mGy-cm FINDINGS: The atlantooccipital and atlantoaxial articulations remain well aligned. Mild degenerative changes at the atlantodental articulations. Straightening of the normal cervical lordosis. Otherwise, there is anatomic alignment of the vertebral bodies and posterior elements. 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 No evidence of acute fracture or subluxation. The vertebral body heights and disc spaces are maintained. Mild right facet arthropathy at C7-T1. There is no prevertebral soft tissue swelling. The thyroid gland and remaining cervical soft tissues are within normal limits. The lung apices demonstrate no abnormalities. CT/CT cervical spine wo IV con IMPRESSION: No acute fracture or traumatic subluxation involving the cervical spine. Electronically signed by: Nabil Padilla MD 09/11/2024 12:56 PM EDT
[2024-09-11 08:57] VITALS: BP 121/49; PULSE 66; RESP 18; TEMP 36.7; O2SAT 99; BMI 27.2
--- NOTE | 2024-09-11 09:21 | ED_ITS ---
HPI - Extremity Problem General Chief complaint: Extremity Injury, Upper Stated complaint: L shoulder pain Time Seen by Provider: 09/11/24 09:19 Source: patient Mode of arrival: ambulatory Limitations: no limitations History of Present Illness ED Provider: Yecenia BRICENO Narrative: Patient is a 33-year-old right-hand dominant female with history of fibromyalgia, asthma, migraines presenting to the emergency department with complaint of left neck and shoulder pain radiating down left arm with associated numbness and tingling for the past 2 weeks. States pain has significantly worsened over the past week and is interfering with her sleep. 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 Reports history of prior neck pain in the past, denies history of neck or back surgeries. Denies recent MVC or other traumatic injury. Denies decreased range of motion to left arm. States numbness and tingling extends to left 2nd, 3rd, and 4th fingers. Seen at an urgent care yesterday for back pain and was prescribed a muscle relaxer and steroid, states no change in pain after taking the muscle relaxer, has not started taking the steroids yet. Denies chest pain, shortness of breath, palpitations. Onset (ago): week(s) Pain Consistency: constant Location: left and upper extremity Quality: burning and aching Radiation: distal Relieving factors: nothing Exacerbating factors: other (laying in bed) Associated symptoms: denies other symptoms Related Data Home Medications ?Medication ?Instructions ?Recorded ?Confirmed albuterol sulfate 90 mcg/actuation 1 inh inhalation QID 11/28/21 07/31/22 aerosol inhaler (ProAir HFA) epinephrine 0.15 mg/0.15 mL subcut 11/28/21 07/31/22 auto-injector (for 33 to 66 lb patients) fluticasone propionate 50 1 spray intranasal DAILY 11/28/21 07/31/22 mcg/actuation nasal spray,suspension (Flonase Allergy Relief) cholecalciferol (vitamin D3) 10 10 mcg PO DAILY 03/08/22 05/05/22 mcg (400 unit) capsule cephalexin 500 mg capsule 500 mg PO QID 09/29/22 cyclobenzaprine 5 mg tablet 5 mg PO TID PRN 11/10/22 Previous Rx's ?Medication ?Instructions ?Recorded atogepant 30 mg tablet 30 mg PO .COMPLEX 30 days #30 tabs 03/08/22 frovatriptan 2.5 mg tablet 2.5 mg PO .COMPLEX PRN migraine 05/16/22 headache 30 days #12 tabs fremanezumab-vfrm 225 mg/1.5 mL 225 mg (1.5 mL) subcut .COMPLEX 30 05/26/22 subcutaneous auto-injector (Ajovy) days #1.5 mL rizatriptan 10 mg tablet 5 - 10 mg (0.5 - 1 x 10 mg) PO Q2H 06/12/22 PRN migraine headache 30 days #12 tabs azithromycin 250 mg tablet See Rx Instructions PO .COMPLEX 5 11/10/22 (Zithromax Z-Armani) days #6 tabs prednisone 20 mg tablet 40 mg (2 x 20 mg) PO DAILY 5 days 11/10/22 #10 tabs ondansetron 4 mg disintegrating 4 mg PO Q8H 3 days #9 tabs 09/21/23 tablet gabapentin 100 mg capsule 100 mg PO TID #21 caps 09/11/24 lidocaine 5 % topical patch 1 patch topical DAILY #15 ea 09/11/24 Allergies Allergy/AdvReac Type Severity Reaction Status Date / Time oxycodone [From Percocet] Allergy Dizziness Verified 09/11/24 08:59 Review of Systems Review of Systems: As per HPI. Yes all other systems are reviewed and are negative Constitutional: Constitutional: Reports as per HPI [facility] Past Medical History Medical History Cough Bronchitis Chest congestion Abdominal pain Excessive daytime sleepiness Headache, unspecified Migraines Anemia Neck pain Vertigo Surgical History H/O wisdom tooth extraction H/O nasal septoplasty Family History Family History Mother Bipolar 1 disorder Diabetes Maternal Grandmother COPD (chronic obstructive pulmonary disease) Other Family history of heart disease Family history of lung disease Social History Social History Household Members: Significant Other Alcohol intake: current Alcohol intake frequency: holidays/special occasions only Patient Tobacco Use Status: Never used Tobacco Advance Directives: No Advance Directives Information Provided: Yes Do you have a plan to hurt others: No Plan Current occupational status: employed 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 Blood pressure normal. Heart rate normal. Respiratory rate normal. Temperature normal. Oxygen saturation normal. Const: General: cooperative, healthy appearing and no acute distress Orientation/consciousness: oriented to person, oriented to place, oriented to time and patient oriented x3 Limitations: no limitations HEENT: Head: Yes normocephalic and Yes atraumatic Ears: external ears normal General nose exam: Normal external nose present Face and sinus: Yes face symmetric Mouth: oropharynx normal and moist mucous membranes Throat: Yes uvula midline Eyes: Pupils: Equal, round and reactive pupils present Neck: Neck: Yes normal visual inspection and Yes supple Resp: Effort & Inspection: normal respiratory effort and able to speak in complete sentences Auscultation: clear to auscultation bilaterally Cardio: Rate: regular rate Rhythm: regular rhythm Heart sounds: S1 normal heart sound present and S2 normal heart sound present GI: Palpation (GI): Soft to palpation and nontender Auscultation: normoactive bowel sounds : General: Yes no CVA tenderness Back/Spine/Pelvis: Back: no CVA tenderness Cervical Spine: normal cervical lordosis, cervical ROM normal, cervical muscular tenderness, pain with cervical ROM, No Cervical spine tenderness and No step off deformity Skin: General skin exam: elasticity normal and turgor normal Neuro: General: oriented to person, oriented to place, oriented to time, patient oriented x3, moves all extremities, no focal motor deficits and CN's II- XI intact bilaterally Cranial nerves: Yes Equal, round and reactive pupils present Cognition (Neuro): normal cognition Extrem: General: Yes full ROM, Yes normal exam except as noted, Yes no pedal edema and Yes no calf tenderness Left upper extremity: normal to inspection, full ROM, normal capillary refill, shoulder/upper arm Details: inspection abnormal, tenderness Location: of the scapula, axillary nerve sensory function normal and normal ROM; no swelling, no ecchymosis, no crepitus, no deformity and no unsual warmth and hand Details: vascular exam Details: radial pulse present and normal capillary refill Psych: Mental Status: mental status grossly normal Affect: normal affect Thought process: Normal thought process present Medications Administered Discontinued Medications Generic Name Dose Route Start Last Admin Trade Name Yakov PRN Reason Stop Dose Admin Hydromorphone HCl 1 mg 09/11/24 09:38 09/11/24 10:01 Hydromorphone Hcl 1 Mg/Ml Syringe IM 09/11/24 09:39 1 mg ONCE ONE Administration Protocol Ketorolac Tromethamine 30 mg 09/11/24 12:43 09/11/24 12:59 Ketorolac Tromethamine 30 Mg/Ml Vial IM 09/11/24 12:44 30 mg ONCE ONE Administration Ondansetron HCl 4 mg 09/11/24 12:18 09/11/24 12:23 Ondansetron Odt 4 Mg Tab.Rapdis TRANSLINGU 09/11/24 12:19 4 mg ONCE ONE Administration Prednisone 60 mg 09/11/24 09:38 09/11/24 09:58 Prednisone 20 Mg Tablet PO 09/11/24 09:39 60 mg ONCE ONE Administration Medical Decision Making Medical Decision Making [facility] Narrative: Patient is a 33-year-old right-hand dominant female with history of fibromyalgia, asthma, migraines presenting to the emergency department with complaint of left neck and shoulder pain radiating down left arm with associated numbness and tingling for the past 2 weeks. On exam patient is awake, A+Ox3, VS WNL, afebrile, normal neurological exam without focal deficits, physical exam findings as above. Given reported symptoms and physical exam findings, initial differential includes cervical radiculopathy, spinal stenosis, cervical subluxation. Physical exam not consistent with rotatory cuff tear or tendinopathy, no recent trauma to suggest splenic injury. Do not suspect ACS. CT notable for no acute abnormalities or subluxation. My interpretation is in agreement with the radiologist's interpretation. Patient denies any relief of pain after dilaudid and is now reporting nausea. Will try toradol and zofran for nausea. Shortly after administration of toradol, patient updated on CT results. She states that she feels comfortable with discharge home with a prescription for low-dose gabapentin and lidocaine patches, as she was prescribed muscle relaxers and steroids yesterday. States she has taken gabapentin in the past for her migraines. Also has follow up with PCP within the next 1-2 weeks. Return precautions discussed at bedside. Patient verbalized understanding of and agreement with plan. Differential Diagnosis Differential Diagnoses: The differential diagnosis associated with the presentation includes As per [facility]. Admission/Observation Consideration of admission/observation: Escalation of care including admission/observation considered Patient would have been admitted to the hospital had their work up had any findings where hospital admission was appropriate and their clinical presentat ion warranted hospital admission. Consider admission for intractable pain, patient declining. Lab Data [facility] Lab Attestation statement: I reviewed the patient's lab results. As per [facility] Labs: Lab Results 09/11/24 Range/Units 12:29 Urine Test NEGATIVE (NEGATIVE) Independent Interpretation I performed an independent interpretation of an: CT Scan Interpretation: CT notable for no acute abnormalities or subluxation. Radiology Impression Discussion of test interpretation with radiology: I have reviewed the radiologist's reading. Radiologist Impression: CT/CT cervical spine wo IV con IMPRESSION: No acute fracture or traumatic subluxation involving the cervical spine. External Record Review External record reviewed: Inpatient record, Office record and Outpatient record Prescription Management I considered prescription management with: Pain Medication Discharge Plan Discharge Clinical Impression: Cervical radiculopathy Patient Disposition: Home, Self-Care Instructions: Cervical Radiculopathy (ED), Chronic Neck Pain (DC) Additional Instructions: You were evaluated in the emergency department with complaint of neck pain. Your imaging did not show any evidence of a fracture or other concerning findings. Your pain is likely related to a nerve inflammation. You are being prescribed a low dose of gabapentin to treat your pain. If this is helpful in decreasing your pain, follow-up with your primary care provider to let them know. You should also follow up with your primary care provider as you may require physical therapy to improve your symptoms. Return to the emergency department if you develop worsening neck pain or stiffness, new weakness, numbness, or tingling to your arm, severe headaches, or any other concerning symptoms. Prescriptions: New lidocaine 5 % adhesive patch,medicated 1 patch topical DAILY Qty: 15 0RF Rx Instructions: leave on most painful area for up to 12 hrs gabapentin 100 mg capsule 100 mg PO TID Qty: 21 0RF No Action frovatriptan 2.5 mg tablet 2.5 mg PO .COMPLEX PRN (Reason: migraine headache) 30 Days Qty: 12 3RF Rx Instructions: start 2 days prior to onset of menses, may take up to 6 days Ajovy Autoinjector 225 mg/1.5 mL auto-injector 225 mg subcut .COMPLEX 30 Days Qty: 1.5 6RF Rx Instructions: 225 mg subcut monthly; rizatriptan 10 mg tablet 5 - 10 mg PO Q2H PRN (Reason: migraine headache) 30 Days Qty: 12 6RF Rx Instructions: max 2 tabs per day or 4 tabs per week (may take with Aleve) ondansetron 4 mg tablet,disintegrating 4 mg PO Q8H 3 Days Qty: 9 0RF cyclobenzaprine 5 mg tablet 5 mg PO TID PRN azithromycin [Zithromax Z-Armani] 250 mg tablet See Rx Instructions PO .COMPLEX 5 Days Qty: 6 0RF Rx Instructions: take 500 mg today (day 1), then 250 mg for 4 days (days 2-5) PO prednisone 20 mg tablet 40 mg PO DAILY 5 Days Qty: 10 0RF epinephrine 0.15 mg/0.15 mL auto-injector subcut fluticasone propionate [Flonase Allergy Relief] 50 mcg/actuation spray,suspension 1 spray intranasal DAILY Rx Instructions: administer into each nostril albuterol sulfate [ProAir HFA] 90 mcg/actuation HFA aerosol inhaler 1 inh inhalation QID cholecalciferol (vitamin D3) 10 mcg (400 unit) capsule 10 mcg PO DAILY atogepant 30 mg tablet 30 mg PO .COMPLEX 30 Days Qty: 30 6RF Rx Instructions: 30 mg PO nightly; Quilipta complete form completed. cephalexin 500 mg capsule 500 mg PO QID Referrals: Joaquin Carter MD, PhD [Physician] - Stand Alone Forms: Work/School Release Print Language: Khmer
[2024-09-11] MEDS: predniSONE 20 MG TABLET 60 MG PO (09:58)
[2024-09-11] MEDS: HYDROmorphone HCl 1 MG/ML SYRINGE IM (10:01)
[2024-09-11] MEDS: Ondansetron ODT 4 MG TAB.RAPDIS TRANSLINGU (12:23)
[2024-09-11 12:37] LABS: UPreg QC Valid YES; Urine Pregnancy NEGATIVE (NEGATIVE)
[2024-09-11] MEDS: Ketorolac Tromethamine 30 MG/ML VIAL IM (12:59)
[2024-09-11 13:25] VITALS: BP 121/71; PULSE 60; RESP 16; TEMP 36.6; O2SAT 98
[2024-09-11 13:42] VITALS: BP 121/71; PULSE 60; RESP 16; TEMP 36.6; O2SAT 98
== END 2024-09-11 13:43 | disposition home or self-care (01) ==
PROVIDERS: Registered Nurse Emergency; Emergency Provider Emergency Medicine; PCP Internal Medicine
DX: M54.12 Radiculopathy, cervical region (principal); M25.512 Pain in left shoulder; M54.2 Cervicalgia; R20.0 Anesthesia of skin; R11.0 Nausea; Z79.899 Other long term (current) drug therapy
CPT/HCPCS: 72125; 81025; 96372; 99283; 99284; J1171; J1885

== ENCOUNTER 2024-09-16 08:41 | Emergency (ER) | payer OTHER, SELFPAY ==
--- NOTE | ~2024-09-16 | CT_ITS ---
EXAMINATION: CT ABDOMEN AND PELVIS WITHOUT CONTRAST CLINICAL INFORMATION: Left flank pain and abdominal pain COMPARISON: None available. TECHNIQUE: Multidetector volumetric imaging was performed from the superior aspect of the liver through the pubic symphysis. Sagittal and coronal reformatted images were obtained on the technologist's workstation. This CT examination was performed using dose optimization techniques as appropriate, variously including the following: *Automated exposure control *Adjustment of mA and/or kV according to patient size (this includes techniques or standardized protocols for targeted exams where dose is matched to indication/reason for exam; i.e. extremities or head) *Use of iterative reconstruction technique DLP: 531 mGy-cm FINDINGS: LUNG BASES: The visualized lung bases are unremarkable. LIVER, GALLBLADDER, AND BILIARY TREE: The liver is normal in size, shape, and attenuation. No focal hepatic lesion or biliary ductal dilatation is present. The gallbladder is unremarkable with no evidence of radiopaque gallstones, gallbladder wall thickening, or obvious pericholecystic inflammatory changes. PANCREAS: Unremarkable. SPLEEN: Unremarkable. ADRENAL GLANDS: Unremarkable. KIDNEYS AND URETERS: The kidneys are normal in size, shape, and attenuation. No hydronephrosis, hydroureter, or calculi seen. No perinephric stranding. BLADDER: Unremarkable. GASTROINTESTINAL TRACT: Large stool burden in the colon but no bowel obstruction or right or left lower quadrant inflammatory change. Appendix normal. ABDOMINAL WALL: No significant hernia is appreciated. LYMPH NODES: Normal. VASCULAR: Unremarkable. PELVIC VISCERA: Uterus and adnexal structures unremarkable. A tampon is present extending towards the right .Multiple pelvic phleboliths are observed. OSSEOUS STRUCTURES: Unremarkable. CT/CT abdomen pelvis wo IV con IMPRESSION: No acute abnormalities. There is no evidence for a left abdominal or left lower quadrant inflammatory process. Fleischner guidelines were followed. Electronically signed by: Brandyn Gómez MD 09/16/2024 11:57 AM EDT
[2024-09-16 08:46] VITALS: BP 123/75; PULSE 59; RESP 16; TEMP 36.5; O2SAT 100; BMI 26.6
--- NOTE | 2024-09-16 09:35 | ED_ITS ---
HPI - Back Pain/Injury General Chief Complaint: Back Pain/Injury Stated Complaint: Back pain Time Seen by Provider: 09/16/24 09:27 Source: patient Mode of arrival: ambulatory Limitations: no limitations History of Present Illness ED Provider: DR. Pineda HPI Narrative: 33-year-old female came in for evaluation of diffuse back pain and abdominal pain started 2 days ago. Patient was seen in the emergency department on 09/11 is a for neck pain and require CT of the neck which was unremarkable. Patient last bowel movement was yesterday and was normal, no dysuria, no frequency urination, started her menstruation yesterday. No history of intra-abdominal surgery. Related Data Home Medications ?Medication ?Instructions ?Recorded ?Confirmed albuterol sulfate 90 mcg/actuation 1 inh inhalation QID 11/28/21 07/31/22 aerosol inhaler (ProAir HFA) epinephrine 0.15 mg/0.15 mL subcut 11/28/21 07/31/22 auto-injector (for 33 to 66 lb patients) fluticasone propionate 50 1 spray intranasal DAILY 11/28/21 07/31/22 mcg/actuation nasal spray,suspension (Flonase Allergy Relief) cholecalciferol (vitamin D3) 10 10 mcg PO DAILY 03/08/22 05/05/22 mcg (400 unit) capsule cephalexin 500 mg capsule 500 mg PO QID 09/29/22 cyclobenzaprine 5 mg tablet 5 mg PO TID PRN 11/10/22 Previous Rx's ?Medication ?Instructions ?Recorded atogepant 30 mg tablet 30 mg PO .COMPLEX 30 days #30 tabs 03/08/22 frovatriptan 2.5 mg tablet 2.5 mg PO .COMPLEX PRN migraine 05/16/22 headache 30 days #12 tabs fremanezumab-vfrm 225 mg/1.5 mL 225 mg (1.5 mL) subcut .COMPLEX 30 05/26/22 subcutaneous auto-injector (Ajovy) days #1.5 mL rizatriptan 10 mg tablet 5 - 10 mg (0.5 - 1 x 10 mg) PO Q2H 06/12/22 PRN migraine headache 30 days #12 tabs azithromycin 250 mg tablet See Rx Instructions PO .COMPLEX 5 11/10/22 (Zithromax Z-Armani) days #6 tabs prednisone 20 mg tablet 40 mg (2 x 20 mg) PO DAILY 5 days 11/10/22 #10 tabs ondansetron 4 mg disintegrating 4 mg PO Q8H 3 days #9 tabs 09/21/23 tablet gabapentin 100 mg capsule 100 mg PO TID #21 caps 09/11/24 lidocaine 5 % topical patch 1 patch topical DAILY #15 ea 09/11/24 Allergies Allergy/AdvReac Type Severity Reaction Status Date / Time oxycodone [From Percocet] Allergy Dizziness Verified 09/16/24 08:48 Review of Systems 2 Review of Systems: All other systems are reviewed and are negative Constitutional: Reports as per HPI and Reports no additional constitutional complaints Eyes: Reports as per HPI and Reports no additional eye complaints Reports system reviewed and no additional complaints, except as documented Cardiovascular: Reports as per HPI and Reports no additional cardiovascular complaints Respiratory: Reports as per HPI and Reports no additional respiratory complaints Gastrointestinal: Reports as per HPI and Reports no additional gastrointestinal complaints Genitourinary: Reports no additional female genitourinary complaints Musculoskeletal: Reports no additional musculoskeletal complaints Skin/Breast: Reports system reviewed and no additional complaints, except as docu Psychiatric: Reports no additional psychiatric complaints Endocrine: Reports no additional endocrine complaints Hematologic/Lymphatic: Reports no additional hematologic/lymphatic complaints Allergic/Immunologic: Reports no additional allergic/immunologic complaints Reports system reviewed and no additional complaints, except as documented and Reports Abnormal speech present [facility] Past Medical History Medical History Cough Bronchitis Chest congestion Abdominal pain Excessive daytime sleepiness Headache, unspecified Migraines Anemia Neck pain Vertigo Surgical History H/O wisdom tooth extraction H/O nasal septoplasty Family History Family History Mother Bipolar 1 disorder Diabetes Maternal Grandmother COPD (chronic obstructive pulmonary disease) Other Family history of heart disease Family history of lung disease Social History Social History Household Members: Significant Other Alcohol intake: current Alcohol intake frequency: a few times a week Patient Tobacco Use Status: Never used Tobacco Smoked in Last 30 Days: No Use of substances other than those prescribed or required for medical reasons: No Advance Directives: No Advance Directives Information Provided: Yes Do you have a plan to hurt others: No Plan Current occupational status: employed 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 Blood pressure elevated. Heart rate normal. Respiratory rate normal. Temperature normal. Oxygen saturation normal. Appearance: Alert. Oriented X3. No acute distress. Head: Normal external exam. Normocephalic. Atraumatic. No Ac signs noted. No raccoon eyes noted Eyes: PERRLA. EOMI. Conjunctiva and sclera normal. Eyelids normal. ENT: TM's Normal. Pharynx normal. Uvula midline. Moist mucous membranes. No trismus noted. No drooling noted. No muffled voice noted. Neck: Normal inspection. Neck supple. FROM. No adenopathy. Thyroid Normal. No meningeal signs. No neck mass noted. CVS: Normal heart rate and rhythm. Heart sound normal. No murmurs noted. Pulses normal throughout. Respiratory: No respiratory distress. Painless inspiration. Breath sounds normal. No wheezes/rales/rhonchi noted. Chest nontender. No accessory muscle usage noted or decreased air movement noted. Abdomen: Soft and nontender. Bowel sounds normal in all 4 quadrants. No distention noted. No organomegaly noted. No visible injury noted. Back: No CVA tenderness. Full range of motion noted. Skin: Skin warm and dry. Normal skin color. Normal skin turgor. No rashes/lesions/lacerations noted. Extremities: No lower extremity edema. Extremities exhibit normal range of motion. Extremities nontender. Neuro: Oriented X 3. Cranial nerve exam: II-XII are grossly intact No motor deficit. No sensory deficit. Reflexes normal. Course Reevaluation(s) Reevaluation #1: Back pain and abdominal pain for 2 days, slight leukocytosis likely reactionary, otherwise unremarkable labs, CT abdomen pelvis shows no acute pathology, UA positive for blood and 6-10 WBCs patient currently having her menstruation. patient overall feel better after was given Toradol in the emergency department. Bed rest, heating pad, NSAIDs if needed for pain Time: 13:13 Medications Administered Discontinued Medications Generic Name Dose Route Start Last Admin Trade Name Freq PRN Reason Stop Dose Admin Sodium Chloride 1,000 mls @ 999 mls/hr 09/16/24 09:36 09/16/24 10:10 Ns IV 09/16/24 10:36 999 mls/hr .Q1H1M ONE Administration Ketorolac Tromethamine 15 mg 09/16/24 09:36 09/16/24 10:10 Ketorolac Tromethamine 15 Mg/Ml Vial IVPUSH 09/16/24 09:37 15 mg ONCE ONE Administration Medical Decision Making Differential Diagnosis Differential Diagnoses: The differential diagnosis associated with the presentation includes ( pyelonephritis, UTI, kidney stone, colitis, acute appendicitis, diverticulitis, myofascial muscular pain, severe anemia, electrolyte derangement.) Admission/Observation Consideration of admission/observation: Escalation of care including admission/observation considered Lab Data MDM Lab Attestation statement: I reviewed the patient's lab results. 09/16/24 09:53 09/16/24 09:53 Labs: Lab Results 09/16/24 09/16/24 Range/Units 09:53 10:12 WBC 12.2 H (4.8-10.8) X10*3/uL RBC 4.29 (4.20-5.50) X10*6/uL Hgb 12.1 (12.0-16.0) g/dl Hct 36.9 L (37.0-47.0) % MCV 86.0 (80.0-98.0) fL MCH 28.2 (27.0-33.0) pg MCHC 32.8 (31.0-35.0) g/dl RDW 12.7 (11.0-16.0) % Plt Count 238 (160-400) X10*3/uL MPV 10.3 (9.4-12.3) fL Immature Gran % (Auto) 0.6 H (0.0-0.4) % Neut % (Auto) 72.8 (45-73) % Lymph % (Auto) 15.7 L (20-40) % [place] % (Auto) 9.9 (2-11) % Eos % (Auto) 0.7 (0-4) % Baso % (Auto) 0.3 (0-2) % Lymph # (Auto) 1.9 (1.2-4.9) X10*3/uL [place] # (Auto) 1.2 (0.1-1.2) X10*3/uL Eos # (Auto) 0.1 (0.0-0.4) X10*3/uL Baso # (Auto) 0.0 (0.0-0.2) X10*3/uL Abs Immat Gran (auto) 0.07 H (0.00-0.03) X10*3/uL Absolute Neuts (auto) 8.9 H (2.0-8.3) x10*3/uL Absolute Nucleated RBC 0.000 (0.0-0.012) X10*3/uL Nucleated RBC % (auto) 0.0 (0.0-0.2) /100WBC Sodium 140 (135-145) mmol/L Potassium 3.5 (3.3-5.1) mmol/L Chloride 107 (96-108) mmol/L Carbon Dioxide 27 (22-29) mmol/L Anion Gap 10 L (12-20) BUN 22 H (9-16) mg/dL Creatinine 0.87 (0.5-1.4) mg/dL Estim Creat Clear Calc 93.5 Estimated GFR > 60 Random Glucose 87 (60-115) mg/dL Calcium 9.4 (8.4-10.2) mg/dL Total Bilirubin 1.7 H (0.0-1.0) mg/dL Direct Bilirubin 0.5 (0.0-0.5) mg/dL AST 18 (5-31) U/L ALT 15 (0-31) U/L Alkaline Phosphatase 45 (39-117) U/L Total Protein 6.7 (6.5-8.0) g/dL Albumin 4.0 (3.5-5.0) g/dL Lipase 21 (8-78) U/L Urine Color Yellow Urine Appearance Clear Urine pH 5.0 (5.0-9.0) Ur Specific [place] 1.010 (1.005-1.025) Urine Protein 30 (1+) H (Neg-Trace) mg/dL Urine Glucose (UA) Negative (Negative) mg/dL Urine Ketones Negative (Negative) mg/dL Urine Blood Large (3+) H (Negative) Urine Nitrite Negative (Negative) Ur Leukocyte Esterase Negative (Negative) Urine RBC 3-5 H (0-2) /HPF Urine WBC 6-10 H (0-5) /HPF Ur Squamous Epith Cells 0-2 (0-2) /HPF Urine Bacteria None Seen (None Seen) Hyaline Casts 3-5 (0-2) /LPF Urine Test NEGATIVE (NEGATIVE) Independent Interpretation I performed an independent interpretation of an: CT Scan ( Abdomen pelvis:No acute abnormalities. There is no evidence for a left abdominal or left lower quadrant inflammatory process. ) Radiology Impression Discussion of test interpretation with radiology: I have reviewed the radiologist's reading. Discharge Plan Discharge Clinical Impression: Strain of lumbar region Patient Disposition: Home, Self-Care Instructions: Muscle Strain (ED) Prescriptions: No Action frovatriptan 2.5 mg tablet 2.5 mg PO .COMPLEX PRN (Reason: migraine headache) 30 Days Qty: 12 3RF Rx Instructions: start 2 days prior to onset of menses, may take up to 6 days Ajovy Autoinjector 225 mg/1.5 mL auto-injector 225 mg subcut .COMPLEX 30 Days Qty: 1.5 6RF Rx Instructions: 225 mg subcut monthly; rizatriptan 10 mg tablet 5 - 10 mg PO Q2H PRN (Reason: migraine headache) 30 Days Qty: 12 6RF Rx Instructions: max 2 tabs per day or 4 tabs per week (may take with Aleve) ondansetron 4 mg tablet,disintegrating 4 mg PO Q8H 3 Days Qty: 9 0RF lidocaine 5 % adhesive patch,medicated 1 patch topical DAILY Qty: 15 0RF Rx Instructions: leave on most painful area for up to 12 hrs gabapentin 100 mg capsule 100 mg PO TID Qty: 21 0RF cyclobenzaprine 5 mg tablet 5 mg PO TID PRN azithromycin [Zithromax Z-Armani] 250 mg tablet See Rx Instructions PO .COMPLEX 5 Days Qty: 6 0RF Rx Instructions: take 500 mg today (day 1), then 250 mg for 4 days (days 2-5) PO prednisone 20 mg tablet 40 mg PO DAILY 5 Days Qty: 10 0RF epinephrine 0.15 mg/0.15 mL auto-injector subcut fluticasone propionate [Flonase Allergy Relief] 50 mcg/actuation spray,suspension 1 spray intranasal DAILY Rx Instructions: administer into each nostril albuterol sulfate [ProAir HFA] 90 mcg/actuation HFA aerosol inhaler 1 inh inhalation QID cholecalciferol (vitamin D3) 10 mcg (400 unit) capsule 10 mcg PO DAILY atogepant 30 mg tablet 30 mg PO .COMPLEX 30 Days Qty: 30 6RF Rx Instructions: 30 mg PO nightly; Quilipta complete form completed. cephalexin 500 mg capsule 500 mg PO QID Referrals: Star Caro III, MD [Primary Care Provider] - Print Language: Swedish
[2024-09-16 09:59] LABS: MANUAL DIFF FLAG NO
[2024-09-16 10:02] LABS: Basophils Percent Auto 0.3 % (0-2); Eosinophils Absolute Auto 0.1 X10*3/uL (0.0-0.4); Eosinophils Percent Auto 0.7 % (0-4); Hematocrit 36.9 % (37.0-47.0); Hemoglobin 12.1 g/dl (12.0-16.0); Imm Gran Abs Auto 0.07 X10*3/uL (0.00-0.03); Imm Gran Pct Auto 0.6 % (0.0-0.4); Lymphocytes Absolute Auto 1.9 X10*3/uL (1.2-4.9); Lymphocytes Percent Auto 15.7 % (20-40); Mean Corpuscular HGB Conc 32.8 g/dl (31.0-35.0); Mean Corpuscular Hemoglobin 28.2 pg (27.0-33.0); Mean Platelet Volume 10.3 fL (9.4-12.3); Monocytes Absolute Auto 1.2 X10*3/uL (0.1-1.2); Monocytes Percent Auto 9.9 % (2-11); Neutrophils Absolute Auto 8.9 x10*3/uL (2.0-8.3); Neutrophils Percent Auto 72.8 % (45-73); Platelet Count 238 X10*3/uL (160-400); Red Blood Count 4.29 X10*6/uL (4.20-5.50); Red Cell Distribution Width 12.7 % (11.0-16.0); White Blood Count 12.2 X10*3/uL (4.8-10.8)
[2024-09-16] MEDS: Ketorolac Tromethamine 15 MG/ML VIAL IVPUSH (10:10)
[2024-09-16] MEDS: 0.9 % Sodium Chloride 1,000 ML 999 ML IV (10:10)
[2024-09-16 10:21] LABS: Appearance Urine Clear; Color Urine Yellow; Glucose Urine UA Negative (Negative); Leukocyte Esterase Urine Negative (Negative); Nitrite Urine Negative (Negative); UMIC TRIGGER UACC YES; Urine Blood Large (3+) (Negative); Urine Ketones Negative (Negative); Urine Protein 30 (1+) mg/dL (Neg-Trace)
[2024-09-16 10:22] LABS: UPreg QC Valid YES; Urine Pregnancy NEGATIVE (NEGATIVE)
[2024-09-16 10:24] LABS: Alanine Aminotransferase 15 U/L (0-31); Alkaline Phosphatase 45 U/L (39-117); Anion Gap 10 (12-20); Aspartate Amino Transferase 18 U/L (5-31); Bilirubin Direct 0.5 mg/dL (0.0-0.5); Bilirubin Total 1.7 mg/dL (0.0-1.0); Blood Urea Nitrogen 22 mg/dL (9-16); Calcium 9.4 mg/dL (8.4-10.2); Carbon Dioxide 27 mmol/L (22-29); Chloride 107 mmol/L (96-108); Creatinine Clr Calc Pharmacy 93.5; Estimated Glomerular Filt Rate > 60; Glucose Random 87 mg/dL (60-115); Lipase 21 U/L (8-78); Potassium 3.5 mmol/L (3.3-5.1); Sodium 140 mmol/L (135-145); Total Protein 6.7 g/dL (6.5-8.0)
[2024-09-16 10:36] LABS: Bacteria Urine None Seen (None Seen); Squamous Epithelial Cell Urine 0-2 /HPF (0-2); UACC Culture Trigger YES
[2024-09-16 12:54] VITALS: BP 116/69; PULSE 61; RESP 18; TEMP 36.6; O2SAT 98
[2024-09-16 13:45] VITALS: BP 116/68; PULSE 61; RESP 18; TEMP 36.6; O2SAT 98
== END 2024-09-16 13:45 | disposition home or self-care (01) ==
PROVIDERS: Emergency Provider Emergency Medicine; PCP Internal Medicine
DX: S39.012A Strain of muscle, fascia and tendon of lower back, initial encounter (principal); X58.XXXA Exposure to other specified factors, initial encounter; D72.829 Elevated white blood cell count, unspecified; Y93.9 Activity, unspecified; Y92.9 Unspecified place or not applicable; Y99.9 Unspecified external cause status
CPT/HCPCS: 36415; 74176; 80048; 80076; 81001; 81025; 83690; 85025; 87086; 96361; 96374; 99284; J1885

== ENCOUNTER 2024-09-19 14:32 | Outpatient (AMB) | payer OTHER, SELFPAY ==
--- NOTE | 2024-09-19 15:10 | HO.SPINEOV ---
Vital Signs 09/19/24 15:10 Height 5 ft 5.5 in Intake Visit Reasons: ED f/u Intake Note: Ms. Johnson is here c/o neck pain radiating through body. Raw Scales Operator Required: No Allergies oxycodone [From Percocet] Allergy (Verified 09/19/24 15:11) Dizziness Assessment & Plan Assessment & Plan (1) Neck pain: Code(s): M54.2 - Cervicalgia Category: Medical (2) Back pain: Code(s): M54.9 - Dorsalgia, unspecified Category: Medical Plan Dear Dr. Caro This is a very nice 33-year-old female who came to see me in follow-up after the emergency room visit she had last week I believe. She has had chronic pains for years in multiple areas of her body, but had a particularly bad time with her neck in her back last week. 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 She ended up in urgent Care and then in the emergency room. She is treated with steroids and gabapentin. She has also been on Robaxin, Tylenol, ibuprofen etc.. She is feeling a little better now but she is continuing to have tingling and numbness going down her left arm, sciatic pain going down her right leg. Back pain, neck pain, shoulder pain. No loss of bowel and bladder control. Through the years she has been through numerous rounds of conservative treatment including physical therapy, chiropractic, cortisone injections through Dr. Gleason's office, acupuncture. PMH: She has history of asthma, allergies, sciatica, vertigo, headaches, chronic pain, septoplasty Social hx: She has not smoke, drink use any recreational drugs Medications: Albuterol inhaler, Flexeril, Voltaren, gabapentin, Robaxin, Flonase Allergies: Percocet Physical exam: She is awake alert oriented no acute distress, she has full strength of bilateral upper and lower extremities with normal reflexes, no clonus, no Sevilla's sign. Imaging review: There is a CT of her cervical spine which shows slightly kyphotic curvature, I am unable to assess the discs of the spinal cord or the spinal nerves. There is an abdominal CT which shows similar findings. Impression: This is a very nice 33-year-old female who has had on and off issues with her back and neck as well as multiple other body joint polyarthropathy type symptoms through the years. Recently flared up, I am seeing her for her neck pain and left arm pain as well as but low back pain and tingling down her right leg with sciatic pains. Overall her exam is reassuring. She has not really responded to any of the conservative management that has been done for her. She is very hypersensitive to pain and stimulation. It sounds to me like she has rheumatoid arthritis. At 1 point she was worked up for this many years ago but some of the results were negative and I think really the diagnosis of fibromyalgia does not encompass the degree of symptoms that she is currently having. It might be worth getting another rheumatoid workup. In the meantime however, I will get a cervical lumbar MRI just to reassure ourselves and make sure there is nothing more going on. I will see her back once that is completed. Thank you for allowing us to care for your patient. The total time spent with this visit with this patient was 45 minutes reviewing history, physical exam, cervical CT and abdominal CT imaging review, and implementation of treatment plan or further diagnostic testing Mil Carter MD,PhD [facility] Orders: Orders MR lumbar spine wo con Today M54.9 - Dorsalgia, unspecified MR cervical spine wo con Today M54.2 - Cervicalgia Coding Level of Care Code New Pt Level 4 (10266) Diagnoses Neck pain M54.2 Back pain M54.9
== END 2024-09-19 16:13 | disposition home or self-care (01) ==
PROVIDERS: PCP Internal Medicine; Visit Provider Physician Assistant
DX: M54.2 Cervicalgia (principal); M54.9 Dorsalgia, unspecified
CPT/HCPCS: 99204

== ENCOUNTER → 2024-09-19 14:32 | Outpatient (BNVA) | payer OTHER, SELFPAY | PROVIDERS: PCP Internal Medicine; Visit Provider Physician Assistant | DX: M54.2 Cervicalgia (principal); M54.9 Dorsalgia, unspecified | CPT/HCPCS: 99202 ==

== ENCOUNTER 2025-05-15 14:38 | Outpatient (AMB) | payer OTHER, SELFPAY ==
--- NOTE | 2025-05-15 14:48 | A.SPINEOV_ITS ---
Intake Visit Reasons: neck pain Intake Note: Ms. Johnson is here today c/o neck pain. Calender Wind Up Helper Required: No Allergies oxycodone (From Percocet) Allergy (Verified 05/15/25 14:52) Dizziness Assessment & Plan Assessment & Plan (1) Neck pain: Code(s): M54.2 - Cervicalgia Category: Medical Plan Ms Johnson is here in follow-up. She brought her cervical MRI. She continued to have neck pain and bilateral arm pain. She does have some reversal of the normal lordotic curvature of the cervical spine but otherwise I do not see any significant abnormalities that would indicate that she needs surgery. I do not see any nerve compression on the axial imaging. I am not sure if she has fibromyalgia or some kind of chronic pain syndrome that might explain the symptoms, but I do not think surgery will help her. [facility] and I encouraged her to follow up with them. They have interventional pain procedures planned for her and I think that is a great place to follow-up. Total amount of time spent in this visit was 20 minutes in discussion of symptoms, cervical MRI imaging results and subsequent plan of care Mil Carter MD,PhD [facility] Coding Level of Care Code Est Pt Level 3 (52142) Diagnoses Neck pain M54.2
== END 2025-05-15 15:15 | disposition home or self-care (01) ==
PROVIDERS: PCP Internal Medicine; Visit Provider Physician Assistant
DX: M54.2 Cervicalgia (principal)
CPT/HCPCS: 99213

== ENCOUNTER → 2025-05-15 14:38 | Outpatient (BNVA) | payer OTHER, SELFPAY | PROVIDERS: PCP Internal Medicine; Visit Provider Physician Assistant | DX: M54.2 Cervicalgia (principal); Z71.2 Person consulting for explanation of examination or test findings | CPT/HCPCS: 99212 ==

== ENCOUNTER 2025-07-29 08:22 | Emergency (ER) | payer OTHER, SELFPAY ==
[2025-07-29 08:23] VITALS: BP 135/68; PULSE 69; RESP 18; TEMP 36.6; O2SAT 98; BMI 28.3
--- NOTE | 2025-07-29 09:08 | PC.NURSE ---
a&ox4. vss and up to date. pt presents to the ED c/o worsening back pain s/p injuring it while lifting kegs at work x february. pt reports following PT/taking/increasing gabapentin w/o relief. pt reports mid/lower back pain radiating to RLE w/ associated numbness/tingling. pt reports sx worsening to the point where she is using a cane to ambulate which is not her baseline. pt denies any more recent injuries/bowel/bladder incontinence. pt otherwise on RA w/o difficulty. no sob/wob noted. respirations even/unlabored. pending evaluation by MD. plan of care ongoing.
--- NOTE | 2025-07-29 09:28 | ED.BACK ---
HPI - Back Pain/Injury General Chief Complaint: Back Pain/Injury Stated Complaint: back pain down to legs Time Seen by Provider: 07/29/25 08:49 Source: patient Mode of arrival: ambulatory Limitations: no limitations History of Present Illness HPI Narrative: This is a 34 years old female patient with history of chronic lower back pain followed activity specialist presented to the emergency department because of exacerbation of the pain for the last 2 weeks. Denies any weakness, denies any urine incontinence the pain is more in the lower back radiating to the right leg, she had an MRI back in March which I reviewed on her portal (on her phone portal ) small disc L4-L5 in the right. She stated that she has been waiting for approval by the insurance for a spinal injection MD elicited complaint: back pain Pertinent past history: prior back pain Onset (ago): week(s) (2) Timing: constant Severity: moderate Similar Symptoms Previously: Yes Quality: burning and sharp Location: lumbar spine Radiation: right upper leg Exacerbating factors: movement Relieving factors: none Associated symptoms: denies other symptoms Related Data Home Medications ?Medication ?Instructions ?Recorded ?Confirmed albuterol sulfate 90 mcg/actuation 1 inh inhalation QID 11/28/21 07/31/22 aerosol inhaler (ProAir HFA) epinephrine 0.15 mg/0.15 mL subcut 11/28/21 07/31/22 auto-injector (for 33 to 66 lb patients) fluticasone propionate 50 1 spray intranasal DAILY 11/28/21 07/31/22 mcg/actuation nasal spray,suspension (Flonase Allergy Relief) cholecalciferol (vitamin D3) 10 10 mcg PO DAILY 03/08/22 05/05/22 mcg (400 unit) capsule cephalexin 500 mg capsule 500 mg PO QID 09/29/22 cyclobenzaprine 5 mg tablet 5 mg PO TID PRN 11/10/22 Previous Rx's ?Medication ?Instructions ?Recorded atogepant 30 mg tablet 30 mg PO .COMPLEX 30 days #30 tabs 03/08/22 frovatriptan 2.5 mg tablet 2.5 mg PO .COMPLEX PRN migraine 05/16/22 headache 30 days #12 tabs fremanezumab-vfrm 225 mg/1.5 mL 225 mg (1.5 mL) subcut .COMPLEX 30 05/26/22 subcutaneous auto-injector (Ajovy) days #1.5 mL rizatriptan 10 mg tablet 5 - 10 mg (0.5 - 1 x 10 mg) PO Q2H 06/12/22 PRN migraine headache 30 days #12 tabs azithromycin 250 mg tablet See Rx Instructions PO .COMPLEX 5 11/10/22 (Zithromax Z-Armani) days #6 tabs prednisone 20 mg tablet 40 mg (2 x 20 mg) PO DAILY 5 days 11/10/22 #10 tabs ondansetron 4 mg disintegrating 4 mg PO Q8H 3 days #9 tabs 09/21/23 tablet gabapentin 100 mg capsule 100 mg PO TID #21 caps 09/11/24 lidocaine 5 % topical patch 1 patch topical DAILY #15 ea 09/11/24 tramadol 50 mg tablet 50 mg PO BID PRN pain #14 tabs 07/29/25 Allergies Allergy/AdvReac Type Severity Reaction Status Date / Time oxycodone (From Percocet) Allergy Dizziness Verified 07/29/25 08:25 tizanidine AdvReac Dizziness Verified 07/29/25 08:25 Review of Systems ENT: Reports system reviewed and no additional complaints, except as documented Respiratory: Respiratory: Reports no additional respiratory complaints Musculoskeletal: Musculoskeletal: Reports as per [facility] Past Medical History Attestation statement: The following information was validated with the patient. [facility] Narrative: Chronic lower back pain Medical History Cough Bronchitis Chest congestion Abdominal pain Excessive daytime sleepiness Headache, unspecified Migraines Anemia Neck pain Vertigo Surgical History H/O wisdom tooth extraction H/O nasal septoplasty Family History Family History Mother Bipolar 1 disorder Diabetes Maternal Grandmother COPD (chronic obstructive pulmonary disease) Other Family history of heart disease Family history of lung disease Social History Social History Household Members: Significant Other Alcohol intake: current Alcohol intake frequency: holidays/special occasions only Patient Tobacco Use Status: Never used Tobacco Smoked in Last 30 Days: No Use of substances other than those prescribed or required for medical reasons: No Advance Directives: No Advance Directives Information Provided: Yes Do you have a plan to hurt others: No Plan Patient : No Current occupational status: employed 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 Physical Exam Exam: Exam: She looks well not toxic she is sitting in the stretcher in not acute distress, she is able to ambulate Vital Signs: Vital Signs: Last Vital Signs Temp 97.8 F 07/29/25 09:40 Pulse 69 07/29/25 09:40 Resp 18 07/29/25 09:40 BP 135/68 07/29/25 09:40 Pulse Ox 98 07/29/25 09:40 O2 Del Method Room Air 07/29/25 09:40 BMI result Body Mass Index 28.3 Const: General: cooperative Nutritional Appearance: average body habitus Orientation/consciousness: patient oriented x3 Limitations: no limitations HEENT: Head: Yes normal to inspection General nose exam: Normal external nose present Face and sinus: Yes normal facial exam Mouth: Normal oral and palatal mucosa present Neck: Neck: Yes normal visual inspection Chest: Chest palpation & inspection: normal inspection of the chest Resp: Effort & Inspection: normal respiratory effort Auscultation: clear to auscultation bilaterally Cardio: Jugular venous distension: no JVD Rate: regular rate Rhythm: regular rhythm GI: Inspection: Yes normal to inspection Palpation (GI): Soft to palpation, not firm and nontender Skin: General skin exam: no rashes or lesions noted and turgor normal Lesions: no lesions Neuro: Other: No deficit in strength, normal reflexes, able to ambulate General: patient oriented x3 Cranial nerves: Yes CN's II-XII intact bilaterally Motor exam (neuro): 5/5 motor strength present throughout Medical Decision Making Medical Decision Making MDM Narrative: Patient is here increasing lower back pain she already followed by activity specialist waiting to be approved for spinal injection she neurologically intact she is able to ambulate she walked to the department, she had an MRI in March which I reviewed with her. I do not think any to do any imaging today. She states she is on gabapentin for pain she states she is also taking naproxen she states that she can not take oxycodone a I will give a prescription for tramadol Differential Diagnosis Differential Diagnoses: The differential diagnosis associated with the presentation includes Exacerbation of lower back pain, lumbar radiculopathy Admission/Observation Consideration of admission/observation: Escalation of care including admission/observation considered Discharge Plan Discharge Clinical Impression: Back pain Patient Disposition: Home, Self-Care Instructions: Back Pain (ED) Additional Instructions: Please follow-up with your spinal specialist also call your primary care physician for follow-up we sent a prescription for your for tramadol to your pharmacy take as needed for pain Prescriptions: New tramadol 50 mg tablet 50 mg PO BID PRN (Reason: pain) Qty: 14 0RF No Action frovatriptan 2.5 mg tablet 2.5 mg PO .COMPLEX PRN (Reason: migraine headache) 30 Days Qty: 12 3RF Rx Instructions: start 2 days prior to onset of menses, may take up to 6 days Ajovy Autoinjector 225 mg/1.5 mL auto-injector 225 mg subcut .COMPLEX 30 Days Qty: 1.5 6RF Rx Instructions: 225 mg subcut monthly; rizatriptan 10 mg tablet 5 - 10 mg PO Q2H PRN (Reason: migraine headache) 30 Days Qty: 12 6RF Rx Instructions: max 2 tabs per day or 4 tabs per week (may take with Aleve) ondansetron 4 mg tablet,disintegrating 4 mg PO Q8H 3 Days Qty: 9 0RF lidocaine 5 % adhesive patch,medicated 1 patch topical DAILY Qty: 15 0RF Rx Instructions: leave on most painful area for up to 12 hrs gabapentin 100 mg capsule 100 mg PO TID Qty: 21 0RF cyclobenzaprine 5 mg tablet 5 mg PO TID PRN azithromycin [Zithromax Z-Armani] 250 mg tablet See Rx Instructions PO .COMPLEX 5 Days Qty: 6 0RF Rx Instructions: take 500 mg today (day 1), then 250 mg for 4 days (days 2-5) PO prednisone 20 mg tablet 40 mg PO DAILY 5 Days Qty: 10 0RF epinephrine 0.15 mg/0.15 mL auto-injector subcut fluticasone propionate [Flonase Allergy Relief] 50 mcg/actuation spray,suspension 1 spray intranasal DAILY Rx Instructions: administer into each nostril albuterol sulfate [ProAir HFA] 90 mcg/actuation HFA aerosol inhaler 1 inh inhalation QID cholecalciferol (vitamin D3) 10 mcg (400 unit) capsule 10 mcg PO DAILY atogepant 30 mg tablet 30 mg PO .COMPLEX 30 Days Qty: 30 6RF Rx Instructions: 30 mg PO nightly; Quilipta complete form completed. cephalexin 500 mg capsule 500 mg PO QID Referrals: Star Caro III, MD [Primary Care Provider, Medical] - 07/31/25 Stand Alone Forms: Work/School Release Interventions: ED Discharge Assessment Last Done: 07/29/25 09:40 Discharge Date/Time: 07/29/25 09:46 Print Language: Turkish
[2025-07-29 09:40] VITALS: BP 135/68; PULSE 69; RESP 18; TEMP 36.6; O2SAT 98
--- OUTSIDE RECORDS SUMMARY | 2025-07-29 10:53 | XMS_ITS | Encounter Summary ---
Author Organization [facility] Address [address] [place] [address] Care Team Providers Care Golf Ball Marker Name Role Phone Pcp, No Primary Care Provider Unavailabl e Liberty Ball APRN Primary Care Provider U Monica Javier MD Primary Care Provider [phone]- [phone] Pcp, No Primary Care Provider Unavailabl e Encounter Details Date Type Department Care Team (Late st Contact Info) Description 05/17/2016 Scanned Document [address] [address] Provider, Generic Social History Tobacco Use Types Packs/Day Years Used Date Smoking Tobacco: Some Days Alcohol Use Standard Drinks/Week Comments Yes 0 (1 standard drink = 0.6 oz pur e alcohol) moderate Comments Unknown Sex and Gender Information Value Date Recorded Sex Assigned at Not on file Legal Sex Female 7:11 PM EDT Gender Identity Not on file Sexual Orientation Not on file documented as of this encounter Progress Notes * Liberty Ball APRN - 05/18/2016 7:32 AM EDTQuick Note: Informed patient labs are normal, Lyme is negative. Recommend a follow-up office visit with continued symptoms or concerns documented in this encounter Plan of Treatment Not on file documented as of this encounter Procedures Procedure Name Priority Date/Time Associated Diagnosis Comments LAB RESULT 05/17/2016 documented in this encounter Results * LAB RESULT (05/17/2016) Narrative 05/17/2016 Ordered by an unspecified provider. us Generic Provider HX AMB PROCEDURES Edited Result - Final documented in this encounter Visit Diagnoses Not on filedocumented in this encounter Care Teams Golf Ball Marker Relationship Specialty Start Date End Date Pcp, No PCP - General General Medicine 01/03/16 05/18/16 Liberty Ball APRN PCP - General Family Medicine 05/19/16 10/31/16 Monica Macdonald MD PCP - General Internal Medicine 11/01/16 02/07/23 Pcp, No [address] [place] [address] PCP - General 02/08/23 documented as of this encounter
--- OUTSIDE RECORDS SUMMARY | 2025-07-29 10:53 | XMS_ITS | Clinical Summary ---
Author Organization [facility] Address [address] [place] [address] Care Team Providers Care Pastry Baker Name Role Phone Liberty Ball APRN Primary Care Provider Allergies No known active allergies Medications Medication Sig Dispensed Refills Start Date End Date Status traMADol (ULTRAM) 50 MG tablet Take 50 mg by mouth every 6 (six) hours as needed for pain. 20 tablet 0 06/27/2016 Active cyclobenzaprine (FLEXERIL) 10 MG tablet Take 1 tablet (10 mg total) by mouth 3 (three) times a day as needed for muscle spasms. 20 tablet 0 06/27/2016 Active Social History Tobacco Use Types Packs/Day Years Used Date Smoking Tobacco: Never Alcohol Use Standard Drinks/Week Comments Yes 0 (1 standard drink = 0.6 oz pur e alcohol) Socially Sex and Gender Information Value Date Recorded Sex Assigned at Not on file Gender Identity Not on file Sexual Orientation Not on file Job Start Date Occupation Industry Not on file Not on file Not on file Last Filed Vital Signs Vital Sign Reading Time Taken Comments Blood Pressure 113/63 06/27/2016 1:06 PM EDT Pulse 67 06/27/2016 1:06 PM EDT Temperature 36.5 C (97.7 F) 06/27/2016 1:06 PM EDT Respiratory Rate 18 06/27/2016 1:06 PM EDT Oxygen Saturation 94% 06/27/2016 1:06 PM EDT Inhaled Oxygen Concentration - - Weight 65.8 kg (145 lb) 06/27/2016 1:06 PM EDT Height 167.6 cm (5' 6 ) 06/27/2016 1:06 PM EDT Body Mass Index 23.4 06/27/2016 1:06 PM EDT Plan of Treatment Health Maintenance Due Date Last Done Comments Hepatitis B Vaccines (1 of 3 - 3-dose series) 1992 Hepatitis C Screening 1992 COVID-19 Vaccine (#1) 06/27/1993 Depression Screening 2004 Preventative Health Evaluation 2010 Cervical Cancer Screening (P ap Smear) 2013 DTap / Tdap / Td (2 - Td or Tdap) 07/23/2023 013 Influenza Vaccine (#1) 2025 Pneumococcal Vaccine Aged Out No long er eligible based on patient's age to complete this topic RSV Ped < 20 months Aged Out No longe r eligible based on patient's age to complete this topic Advance Directives For more information, please contact: [phone] Documents on File Type Date Recorded 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
--- OUTSIDE RECORDS SUMMARY | 2025-07-29 10:53 | XMS_ITS | Encounter Summary ---
Author Organization [facility] Address [address] [place] [address] Care Team Providers Care Thermometer Maker Name Role Phone Monica Macdonald MD Primary Care Provider +1- [phone] Pcp, No Primary Care Provider Unavailabl e Encounter Details Date Type Department Care Team (Late st Contact Info) Description 03/25/2018 Scanned Document [address] [phone] Unknown Unknow Provider Address Social History Tobacco Use Types Packs/Day Years Used Date Smoking Tobacco: Former Alcohol Use Standard Drinks/Week Comments Yes 0 (1 standard drink = 0.6 oz pur e alcohol) moderate Comments No Sex and Gender Information Value Date Recorded Sex Assigned at Not on file Legal Sex Female 7:11 PM EDT Gender Identity Not on file Sexual Orientation Not on file documented as of this encounter Plan of Treatment Not on file documented as of this encounter Visit Diagnoses Not on filedocumented in this encounter Care Teams Thermometer Maker Relationship Specialty Start Date End Date Monica Macdonald MD PCP - General Internal Medicine 11/01/16 02/07/23 Pcp, No [address] [place] [address] PCP - General 02/08/23 documented as of this encounter
--- OUTSIDE RECORDS SUMMARY | 2025-07-29 10:53 | XMS_ITS | Encounter Summary ---
Author Organization [facility] Address [address] [place] [address] Care Team Providers Care Genetics Physician Name Role Phone Liberty Ball APRN Primary Care Provider U Monica Javier MD Primary Care Provider +1- [phone] Pcp, No Primary Care Provider Unavailabl e Encounter Details Date Type Department Care Team (Late st Contact Info) Description 08/15/2016 Scanned Document [address] [phone] Provider, Generic Social History Tobacco Use Types [...] on filedocumented in this encounter Care Teams Genetics Physician Relationship Specialty Start Date End Date Liberty Ball APRN PCP - General Family Medicine 05/19/16 10/31/16 Monica Macdonald MD PCP - General Internal Medicine 11/01/16 02/07/23 Pcp, No [address] [place] [address] PCP - General 02/08/23 documented as of this encounter
--- OUTSIDE RECORDS SUMMARY | 2025-07-29 10:53 | XMS_ITS | Clinical Summary ---
Author Organization [facility] Address [address] [place] [address] Care Team Providers Care Hull Drafter Name Role Phone Pcp, No Primary Care Provider Unavailabl e Allergies No known active allergies Medications Multiple Vitamin (MULTIVITAMIN) tablet Take 1 tablet by mouth daily. Active cyclobenzaprine (FLEXERIL) 10 MG tablet take 1 tablet by mouth three times a day if needed for muscle spasm 0 06/27/2016 Active ibuprofen (MOTRIN) 800 mg tabletIndicatio ns:Bilateral low back pain without sciatica Take 1 tablet (800 mg total) by mouth 4 times daily (every 6 hours) as needed for mild pain. 30 tablet 3 07/04/2016 Active RA MICONAZOLE 7 2 % vaginal cream apply to affected area every morning and every evening 0 09/14/2016 Active albuterol (PROVENTIL HFA; VENTOLIN HFA) 108 (90 Base) MCG/ACT inhalerIndicati ons:Exercise-in duced asthma Inhale 2 puffs 4 times daily (every 6 hours) as needed for wheezing. 1 Inhaler 0 02/19/2017 Active sertraline (ZOLOFT) 25 MG tabletIndicatio ns:Anxiety TAKE 1 TABLET (25 MG TOTAL) BY MOUTH DAILY. 30 tablet 1 05/03/2017 Active Active Problems Problem Noted Date Diagnosed Date Bilateral low back pain without sciatica 016 Cephalalgia 07/04/2016 Myalgia 01/10/2016 Exercise-induced asthma 01/10/2016 Immunizations Immunization Administration Dates Next Due Tdap 07/23/2013 Family History Medical History Relation Name Comments No Known Problems Father No Known Problems Mother Relation Name Status Comments Father Alive Mother Alive Social History Tobacco Use Types Packs/Day Years Used Date Smoking Tobacco: Former Alcohol Use Standard Drinks/Week Comments Yes 0 (1 standard drink = 0.6 oz pur e alcohol) moderate Comments No Sex and Gender Information Value Date Recorded Sex Assigned at Not on file Legal Sex Female 7:11 PM EDT Gender Identity Not on file Sexual Orientation Not on file Last Filed Vital Signs Vital Sign Reading Time Taken Comments Blood Pressure 117/70 03/06/2017 1:30 PM EDT Pulse 68 03/06/2017 1:30 PM EDT Temperature 36.7 C (98 F) 03/06/2017 1:30 PM EDT Respiratory Rate 12 03/06/2017 1:30 PM EDT Oxygen Saturation 99% 03/06/2017 1:30 PM EDT Inhaled Oxygen Concentration - - Weight 64.9 kg (143 lb) 03/06/2017 1:30 PM EDT Height 165.1 cm (5' 5 ) 03/06/2017 1:30 PM EDT Body Mass Index 23.8 03/06/2017 1:30 PM EDT Plan of Treatment Health Maintenance Due Date Last Done Comments Hepatitis C Virus Screening 1992 HIV Screening 2005 Hepatitis B Vaccines (1 of 3 - 19+ 3-dose series) 07/2012 Pneumococcal Vaccine: Pediat everett (0-5 Years) and At-Risk Patients (6 to 49 Years) (1 of 2 - PCV) 2011 Pap Smear (Ages 21-65) 2013 HPV Vaccines (1 - 3-dose SCDM series) 2019 DTaP/Tdap/Td Vaccines (2 - Td or Tdap) 07/23/2023 Influenza Vaccine 06/19/2025 COVID-19 Vaccine ( - 2023- season) 2025 Insurance [facility] Care Teams Hull Drafter Relationship Specialty Start Date End Date Pcp, No [address] [place] [address] PCP - General 02/08/23
--- OUTSIDE RECORDS SUMMARY | 2025-07-29 10:53 | XMS_ITS ---
Author Name [facility] Organization Unknown Care Team Organization Name Specialty Phone Email Start Date End Da te [facility] JR PEREZ Primary Care 03/26/2023 4 [facility] Ela Ramos Primary Care 01/24/2023 07/07/2024 [facility] Jessica Reinoso Primary Care 09/26/2022 4
--- OUTSIDE RECORDS SUMMARY | 2025-07-29 10:53 | XMS_ITS | Encounter Summary ---
Author Organization [facility] Address [address] [place] [address] Care Team Providers Care Pearl Stringer Name Role Phone Pcp, No Primary Care Provider Unavailabl e Liberty Ball APRN Primary Care Provider U Monica Javier MD Primary Care Provider +1- [phone] Pcp, No Primary Care Provider Unavailabl e Encounter Details Date Type Department Care Team (Late st Contact Info) Description 04/06/2016 Scanned Document [address] [address] Provider, Generic Social History Tobacco Use Types [...] Progress Notes * Liberty Ball APRN - 05/16/2016 7:28 AM EDTQuick Note: Informed patient labs are normal, Lyme test is still pending documented in this encounter Plan of Treatment Not on file documented as of this encounter Procedures Procedure Name Priority Date/Time Associated Diagnosis Comments LAB RESULT 04/06/2016 LAB RESULT 04/06/2016 documented in this encounter Results * LAB RESULT (04/06/2016) Narrative 04/06/2016 Ordered by an unspecified provider. us Generic Provider HX AMB PROCEDURES Final Result * LAB RESULT (04/06/2016) Narrative 04/06/2016 Ordered by an unspecified provider. us Generic Provider HX AMB PROCEDURES Edited Result - Final documented in this encounter Visit Diagnoses Not on filedocumented in this encounter Care Teams Pearl Stringer Relationship Specialty Start Date End Date Pcp, No PCP - General General Medicine 01/03/16 05/18/16 Liberty Ball APRN PCP - General Family Medicine 05/19/16 10/31/16 Monica Macdonald MD PCP - General Internal Medicine 11/01/16 02/07/23 Pcp, No [address] [place] [address] PCP - General 02/08/23 documented as of this encounter
--- OUTSIDE RECORDS SUMMARY | 2025-07-29 10:53 | XMS_ITS | Encounter Summary ---
Author Organization [facility] Address [address] [place] [address] Care Team Providers Care Librarian Name Role Phone Liberty Ball APRN Primary Care Provider U Monica Javier MD Primary Care Provider +1- [phone] Pcp, No Primary Care Provider Unavailabl e Encounter Details Date Type Department Care Team (Late st Contact Info) Description 06/27/2016 Scanned Document [address] [phone] Provider, Generic Social History Tobacco [...] Progress Notes * Liberty Ball APRN - 07/20/2016 7:21 AM EDTQuick Note: Inform patient CT of head is normal documented in this encounter Plan of Treatment Not on file documented as of this encounter Procedures Procedure Name Priority Date/Time Associated Diagnosis Comments CT SCAN EXTERNAL RESULT 07/19/2016 documented in this encounter Results * CT SCAN EXTERNAL RESULT (07/19/2016) Anatomical Region Laterality Modality Computed Tomogra phy Narrative 07/20/2016 4:41 AM EDT Ordered by an unspecified provider. us Generic Provider IMG CT ORDERABLES Edited Result - Final documented in this encounter Visit Diagnoses Not on filedocumented in this encounter Care Teams Librarian Relationship Specialty Start Date End Date Liberty Ball APRN PCP - General Family Medicine 05/19/16 10/31/16 Monica Macdonald MD PCP - General Internal Medicine 11/01/16 02/07/23 Pcp, No [address] [place] [address] PCP - General 02/08/23 documented as of this encounter
--- OUTSIDE RECORDS SUMMARY | 2025-07-29 10:54 | XMS_ITS | Clinical Summary ---
Author Organization [facility] [address] [place] [address] [place] [phone] Phone Care Team Providers Care Dispatcher Radioactive Waste Disposal Name Role Phone Star Caro MD Primary Care Provider [phone] Allergies Active Allergy Reactions Criticality Noted Date Comments Oxycodone-Acetaminophen Low 02/10/2021 vertigo Tizanidine Dizziness Low 03/16/2025 Medications hydrocortisone 2.5 % cream Apply topically 2 (two) times a day. 4 Active triamcinolone (KENALOG) 0.1 % cream 1 Active fexofenadine (RICH) 180 mg tablet Take 1 tablet (180 mg total) by mouth 1 (one) time each day if needed (allergies). 90 tablet 1 5 Active ketoconazole (NIZORAL) 2 % shampoo APPLY TOPICALLY 2 TIMES A WEEK. SHAMPOO, LEAVE ON FOR 5-10 MINUTES, THEN RINSE. 360 mL 1 5 Active ibuprofen (ADVIL,MOTRIN) 800 mg tablet Take 1 tablet (800 mg total) by mouth every 8 (eight) hours if needed for mild pain or moderate pain. 90 tablet 5 Active methocarbamoL (ROBAXIN) 500 mg tablet Take 1 tablet (500 mg total) by mouth at bedtime as needed for muscle spasms. 20 tablet 5 Active naproxen (NAPROSYN) 500 mg tablet TAKE 1 TABLET BY MOUTH TWICE A DAY NEEDED FOR MILD PAIN 180 tablet 1 5 Active gabapentin (NEURONTIN) 300 mg capsule TAKE 1 CAPSULE BY MOUTH EVERYDAY AT BEDTIME 30 capsule 1 5 Active fluticasone propionate (FLONASE) 50 mcg/actuation nasal spray Administer 1 spray into each nostril 1 (one) time each day. Shake gently. Before first use, prime pump. After use, clean tip and replace cap. Active albuterol HFA (ProAir HFA) 90 mcg/actuation inhaler Inhale 2 puffs by mouth every 4 (four) hours if needed for wheezing or shortness of breath (cough). 6.7 g 5 Active albuterol HFA (ProAir HFA) 90 mcg/actuation inhaler Inhale 2 puffs by mouth every 4 (four) hours if needed for wheezing or shortness of breath (cough). 4 06/30/20 25 Discontinu ed(Reorder ) albuterol HFA (ProAir HFA) 90 mcg/actuation inhaler Inhale 2 Puffs into the lungs 4 times daily as needed for Cough, Wheezing or Shortness of Breath. 4 06/30/20 25 Discontinu ed(Duplica te order) carbamide peroxide (DEBROX) 6.5 % otic solution Administer 5-10 drops into the left ear 2 (two) times a day for 8 days. 15 mL 5 07/08/20 25 Active Problems Problem Noted Date Diagnosed Date Right hip pain 05/01/2025 Assessment & Plan (05/01/2025 11:52 AM EDT): Ms. Quiros describes right hip pain since a lifting injury at work. She has pain in the low back, right hip with radiation down the lateral thigh. At the knee the pain crosses over to the mcdonnell and travels to the dorsum of the foot. She had significant pain with internal and external rotation of the right hip. I am going to order some x-rays of the right hip and told her I would be in touch after reviewing the films. Acute right-sided low back pain with right-sided sciatica 05/01/2025 Assessment & Plan (05/01/2025 11:59 AM EDT): Ms. Quiros scribes low back pain with radiation down the right leg since a lifting injury at work on February 27, 2025. 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 She admits to subtle left leg symptoms but denies any perineal numbness or problems of bowel or bladder control. Neurologically she is intact. Right sided straight leg raise did cause back pain. Her MRI of the lumbar spine shows some desiccation of the L4-5 disc without any Modic changes in the adjacent endplates. There was no neural impingement. I told Ms. Quiros that I did not see anything on the MRI that explain her leg pain but certainly there was an explanation for the back pain. Going to order some x-rays of the lumbar spine with flexion and extension views to rule out any instability. We talked about acupuncture, chiropractic treatment, yoga, and inversion table and NSAIDs as reasonable conservative modalities along with her physical therapy that she just completed. Gave her a paper on natural anti-inflammatory agents for pain relief in athletes. I told her I would be in touch after reviewing her x-rays. Chronic left shoulder pain 01/24/2023 Seasonal allergies 01/24/2023 Cervical spondylosis 10/24/2022 Overview (01/14/2024): Last Assessment & Plan: Ms. Quiros returns describing significant dizziness over the past 5 weeks whenever there is pressure placed the bottom of the cervical spine or at the base of the occiput. She has a hard time laying down at night and cannot lay on her left. She was ruled out for having BPPV. She has tried acupuncture with no lasting improvement. Yoga felt good at the time but she had significant dizziness for the subsequent 2 days. She looked into aquatic therapy but there were no classes being offered. She is currently taking diclofenac and turmeric daily and Flexeril as needed. On exam, there is no step-off or deformity of the cervical spine, there is minimal tenderness in the midline at the base of the occiput. Cervical rotation is 75 degrees bilaterally, strength is 5/5, sensation light touch intact. We reviewed the images from her cervical spine MRI at [facility] dated 10/27/2022 which shows straightening of the normal lordosis with maintained vertebral body and disc height. There is no central or foraminal stenosis with note made only of a mild right-sided bulge into the C7-T1 foramen without nerve root compression. Her cervical MRI is essentially normal as this straightening of the lordosis is usually from spasm. On further questioning, she underwent what she believes were trigger point injections at physiatry more than 6 months ago with some improvement that lasted over 1 month. We will refer her back for reconsideration and I also suggested taking aquatic classes at her local gym. Migraine 08/04/2022 Chronic vertigo 08/04/2022 Vitamin D insufficiency 07/07/2021 Palpitations 12/10/2020 Overview (01/14/2024): Rare PACs and PVCs on holter Last Assessment & Plan: She is known to have infrequent PVCs, about 1% by Holter monitor last year. Her cardiac and physical exam are otherwise normal. Most likely this is a benign condition. Asthma medication could increase PVC burden. Will be optional to obtain echocardiogram. I discussed this with her and she preferred to hold off further testing at this point. We will continue to monitor her symptoms. There is no contraindication for initiation of migraine treatment. Iron deficiency anemia 05/15/2020 Overweight (BMI 25.0-29.9) 05/09/2019 Gastroesophageal reflux disease 03/19/2018 Chronic low back pain with sciatica 03/19/2018 Anxiety 03/19/2018 Asthma, exercise induced 03/19/2018 Encounters Date Type Department Care Team Description 07/10/2025 Telephone Neurosurgery [place] [address] [place] [address] July Daniels MA 06/30/2025 10:30 AM EDT Office Visit Adult Medicine [address] [phone] Kelley Barton PA Hypoglycemia (Primary Dx); Screening for diabetes mellitus; Screening for lipid disorders; Polyarthralgia; Vertigo; Excessive cerumen in left ear canal; Asthma, exercise induced 06/26/2025 Nurse Triage Adult Medicine [address], [place] [phone] Star Caro MD 05/26/2025 10:41 AM EDT Anesthesia Event [facility] Pain Management [address] [place] [address] Lionel Begum MD 05/26/2025 10:25 AM EDT - 05/26/2025 11:59 PM EDT Hospital Encounter [facility] Xray [address] [place] [phone] Pain Discharge Disposition: Home or Self Care 05/26/2025 9:41 AM EDT - 05/26/2025 11:59 PM EDT Hospital Encounter [facility] Pain Management [address] [place] [phone] Alex Gleason DO Swanson, Mona, CRNA Spencer, Mark A, MD Cervicalgia Discharge Disposition: Home or Self Care 05/18/2025 Nurse Triage Adult Medicine [address] [phone] Star Caro MD 05/15/2025 Telephone Neurosurgery [address] [phone] [place] 05/08/2025 9:45 AM EDT Office Visit Adult Medicine [address] [phone] Kelley Barton PA Chronic neck pain (Primary Dx) 05/08/2025 Telephone Neurosurgery [address] [phone] Florentin Cook PA 05/08/2025 Telephone Adult Medicine [address] [phone] Star Caro MD 05/04/2025 3:22 PM EDT - 05/04/2025 11:59 PM EDT Hospital Encounter [facility] Xray [address] [place] [address] Chronic bilateral low back pain with right-sided sciatica Discharge Disposition: Home or Self Care 05/04/2025 3:19 PM EDT - 05/04/2025 11:59 PM EDT Hospital Encounter [facility] Xray [address] [place] [phone] Chronic bilateral low back pain with right-sided sciatica Discharge Disposition: Home or Self Care 05/01/2025 10:30 AM EDT Consult Neurosurgery [place] [facility] [address] [place] [phone] Florentin Cook PA Acute right-sided low back pain with right-sided sciatica (Primary Dx); Work related injury; Chronic bilateral low back pain with right-sided sciatica; Right hip pain 05/01/2025 8:14 AM EDT - 05/01/2025 11:59 PM EDT Hospital Encounter Radiology Department [address] [phone] Chronic neck pain Discharge Disposition: Home or Self Care from Last 3 Months Immunizations Name Administration Dates Next Due Hep B, Unspecified 03/25/2018 MMR, measles mumps and rubel la Live (Priorix; M-M-R II) 12mo and older 03/25/2018 Tdap Tetanus diptheria acell ular pertussis (Boostrix; Adacel) 7yo and older 01/18/2021,07/23/2013 Surgical History Surgery Date Site/Laterality Comments WISDOM TOOTH EXTRACTION PROCEDURE: HISTORICAL WISDOM TEETH EXTRACTION NASAL SEPTUM SURGERY PROCEDURE: NV REPAIR NASAL SEPTAL PERFORATIONS; COMMENT: septoplasty Medical History Medical History Date Comments Anxiety 03/19/2018 DX:Anxiety Asthma, exercise induced 03/19/2018 DX:Asth ma, exercise induced Chronic low back pain with sciatica 03/19/2018 DX:Chronic low back pain with sciatica Gastroesophageal reflux disease 03/19/2018 DX:Gastroesophageal reflux disease Overweight (BMI 25.0-29.9) 05/09/2019 DX:Ov erweight (BMI 25.0-29.9) Iron deficiency anemia 05/15/2020 DX:Iron d eficiency anemia Benign paroxysmal vertigo of both ears DX:Benign paroxysmal vertigo of both ears Family History Medical History Relation Name Comments Lung cancer Aunt maternal Other: bipolar disease Mother type 2 diabetes Breast cancer Neg Hx Colon cancer Neg Hx Ovarian cancer Neg Hx Relation Name Status Comments Aunt Alive Father Alive Mother Alive Social History Tobacco Use Types Packs/Day Years Used Date Smoking Tobacco: Never Smokeless Tobacco: Never Tobacco Cessation:Counseling Given: Not Answered Alcohol Use Standard Drinks/Week Comments Yes 0 (1 standard drink = 0.6 oz pur e alcohol) Housing Instability Answer Date Recorde d Are you worried that in the next 2 months you may not have stable housing? No 01/02/2025 Food Access & Nutrition Answer Date Rec orded Do you have access to a vari ety of food including fruits and vegetables? Yes 01/02/2025 Access to Healthcare Answer Date Record ed Within the last 3 months, ho w many times did you visit the emergency department for your medical care? 1 01/02/2025 Health Literacy Answer Date Recorded How often do you need to hav e someone help you when you read instructions, pamphlets, or other written material from your doctor or pharmacy? Never 01/02/2025 Caregiver: How often do you need to have someone help you when you read instructions, pamphlets, or other written material from your doctor or pharmacy? Not on file 01/02/2025 Financial Risk Answer Date Recorded How hard is it for you to pa y for the very basics like food, housing, medical care, and air conditioning / heating? Not very hard 01/02/2025 Transportation Answer Date Recorded Has the lack of transportati on kept you from meetings, work, or from getting things needed for daily living? No Has the lack of transportati on kept you from medical appointments or from getting medications? No 01/02/2025 Social Isolation Answer Date Recorded How often do you feel lonely or isolated from th ose around you? Never 01/02/2025 Food Risk Answer Date Recorded Within the past 12 months we worried whether our food would run out before we got money to buy more. Never true 01/02/2025 Within the past 12 months th e food we bought just didn't last and we didn't have money to get more. Never true 01/02/2025 Living Situation Answer Date Recorded What is your living situation? 0 01/02/2025 Comments No Sex and Gender Information Value Date Recorded Sex Assigned at Not on file Legal Sex Female 10:15 AM EST Gender Identity Not on file Sexual Orientation Not on file Obstetrics History * This document contains information received from the source organization and may not represent a complete record from that organization. Para Term AB IAB SAB Ectopic Multiple Livin g Live Births 1 0 0 0 0 0 0 0 Date Outcome GA Total Labor Labor/2nd/3rd Weight Sex Type Anes PTL Bri A1 A5 Name Clin Last Filed Vital Signs Vital Sign Reading Time Taken Comments Blood Pressure 110/78 06/30/2025 10:27 AM EDT Pulse 74 06/30/2025 10:27 AM EDT Temperature 36.1 C (97 F) 06/30/2025 10:27 AM EDT Respiratory Rate 16 06/30/2025 10:2 7 AM EDT Oxygen Saturation 98% 06/30/2025 10: 27 AM EDT Inhaled Oxygen Concentration - - Weight 77.1 kg (169 lb 14.4 oz) 025 10:27 AM EDT Height 166.4 cm (5' 5.51 ) 06/30/2025 1 0:27 AM EDT Body Mass Index 27.83 06/30/2025 10:27 AM EDT Plan of Treatment Upcoming Encounters Date Type Department Care Team (Late st Contact Info) Description 08/10/2025 9:00 AM EDT Office Visit Adult Medicine [facility] [address] [place] [phone] Mary Jane Dias NP [address] [place] [address] Health Maintenance Due Date Last Done Comments Pneumococcal Vaccine: Pediatrics (0 to 5 Years) and At-Risk Patients (6 to 49 Years) (1 of 2 - PCV) 2011 Hepatitis B Vaccines (2 of 3 - 19+ 3-dose series) 04/22/2018 03/25/2018 COVID-19 Vaccine (1 - 2023-2 5 season) 2025 Influenza Vaccine (#1) 2025 Social Influencers of Health Screening 01/02/2026 01/02/2025, 12/26/2023 Cervical Cancer Screening: HPV 08/31/2028 08/31/2023 Cholesterol Screening (Lipid Panel) 06/30/2030 06/30/2025, 06/27/2024, 06/27/2024 DTaP,Tdap,and Td Vaccines (3 - Td or Tdap) 01/18/2031 01/18/2021, 07/23/2013 MMR Vaccines Aged Out 03/25/2018 No longer eligi ble based on patient's age to complete this topic HIV Screening Completed 04/28/2019 Hepatitis C Screening Completed 04/28/2019 Depression Screening Completed 03/20/2025, 06/27/2024 HIB Vaccines Aged Out No longer eligi ble based on patient's age to complete this topic HPV Vaccines Aged Out No longer eligi ble based on patient's age to complete this topic Hepatitis A Vaccines Aged Out No long er eligible based on patient's age to complete this topic IPV Vaccines Aged Out No longer eligi ble based on patient's age to complete this topic Meningococcal ACWY Vaccine Aged Out N o longer eligible based on patient's age to complete this topic Meningococcal B Vaccine Aged Out No l onger eligible based on patient's age to complete this topic RSV Immunization Patients Under 20 months Aged Out No longer eligible b ased on patient's age to complete this topic Varicella Vaccines Aged Out No longer eligible based on patient's age to complete this topic Procedures Procedure Name Priority Date/Time Associated Diagnosis Comments BASIC METABOLIC PANEL Routine 06/30/2025 10:54 AM EDT Hypoglycemia Screening for diabetes mellitus HEMOGLOBIN A1C Routine 06/30/2025 10:54 AM EDT Screening for diabetes mellitus COMPLETE BLOOD COUNT Routine 06/30/2025 10:54 AM EDT Screening for lipid disorders LIPID PANEL WITH REFLEX TO DIRECT LDL Routine 06/30/2025 10:54 AM EDT Screening for lipid disorders RHEUMATOID FACTOR Routine 06/30/2025 10: 54 AM EDT Polyarthralgia ALBERTO IFA WITH TITER AND PATTERN Routine 06/30/2025 10:54 AM EDT Polyarthralgia POC GLUCOSE Routine 06/30/2025 10:34 AM EDT Hypoglycemia XR LUMBAR SPINE 4+ VIEWS Routine 05/04/2025 3:34 PM EDT Chronic bilateral low back pain with right-sided sciatica XR HIP 2-3 VIEWS RIGHT Routine 05/04/2025 3:34 PM EDT Chronic bilateral low back pain with right-sided sciatica MR CERVICAL SPINE WO CONTRAST Routine 05/01/2025 9:01 AM EDT Chronic neck pain HM DEPRESSION SCREENING Routine 06/27/2024 HM HPV Routine 08/31/2023 HEPATITIS C SCREENING Routine 04/28/2019 HIV SCREENING Routine 04/28/2019 from Last 3 Months or Most Recently Relevant to Health Maintenance Results * Lipid panel with reflex to direct LDL (06/30/2025 10:54 AM EDT) Cholesterol 188 0 - 200 mg/dL LAB CHEMISTRY METHOD 06/30/2025 3:18 PM EDT [facility] Triglycerides 122 0 - 150 mg/dL LAB CHEMISTRY METHOD 06/30/2025 3:18 PM EDT [facility] HDL 66 >=40 mg/dL LAB CHEMISTRY METHOD 06/30/2025 3:18 PM EDT [facility] LDL Calculated 98 0 - 100 mg/dL LAB CHEMISTRY METHOD 06/30/2025 3:18 PM EDT [facility] Comment:Estimated LDL Calcul ated using equation: Total cholesterol - HDL cholesterol - (Triglycerides/5) VLDL Cholesterol Chevy 24.4 mg/dL LAB CHEMISTRY METHOD 06/30/2025 3:18 PM EDT [facility] Non HDL Chol. (LDL+VLDL) 122 <145 mg/dL LAB CHEMISTRY METHOD 06/30/2025 3:18 PM EDT [facility] Chol/HDL Ratio 2.8 0.0 - 4.4 LAB CHEMISTRY METHOD 06/30/2025 3:18 PM EDT [facility] Blood Venous blood specimen / Unknown Venipuncture / Unknown 06/30/2025 10:54 AM EDT 06/30/2025 10:54 AM EDT [facility] LAB BLOOD ORDERABLES Fi nal Result Performing Organization Address [facility]/ZIP Co de Phone Number [facility] [address] [place] [address], [place] [phone] * ALBERTO IFA with titer and pattern (06/30/2025 10:54 AM EDT) ALBERTO Negative Negative 07/01/2025 1:47 PM EDT [facility] Comment:ALBERTO performed by ind irect immunofluorescence (IFA) using HEp-2 substrate. Blood Venous blood specimen / Unknown Venipuncture / Unknown 06/30/2025 10:54 AM EDT 06/30/2025 10:54 AM EDT [facility] BLOOD ORDERABLES Fi nal Result Performing Organization Address [facility] de Phone Number [facility] [address] [place] [address], [place] [phone] * (ABNORMAL) Complete blood count (06/30/2025 10:54 AM EDT) WBC 6.3 4.8 - 10.8 K/mcL LAB HEMETOLOGY METHOD 06/30/2025 12:10 PM EDT [facility] RBC 4.40 3.80 - 4.80 M/mcL LAB HEMETOLOGY METHOD 06/30/2025 12:10 PM EDT [facility] Hemoglobin 12.2 11.5 - 16.0 g/dL LAB HEMETOLOGY METHOD 06/30/2025 12:10 PM EDT [facility] Hematocrit 38.4 35.0 - 47.0 % LAB HEMETOLOGY METHOD 06/30/2025 12:10 PM EDT [facility] MCV 86.9 79.0 - 98.0 FL LAB HEMETOLOGY METHOD 06/30/2025 12:10 PM EDT [facility] MCH 27.6 27.0 - 32.0 pcg LAB HEMETOLOGY METHOD 06/30/2025 12:10 PM EDT [facility] MCHC 31.8(L) 32.0 - 37.0 g/dL LAB HEMETOLOGY METHOD 06/30/2025 12:10 PM EDT [facility] RDW 12.3 11.0 - 15.0 % LAB HEMETOLOGY METHOD 06/30/2025 12:10 PM EDT [facility] Platelets 249 130 - 400 K/mcL LAB HEMETOLOGY METHOD 06/30/2025 12:10 PM EDT [facility] MPV 11.3(H) 7.0 - 11.0 FL LAB HEMETOLOGY METHOD 06/30/2025 12:10 PM EDT [facility] NRBC 0.0 <1.0 % LAB HEMETOLOGY METHOD 06/30/2025 12:10 PM EDT [facility] NRBC Absolute 0.00 <0.10 K/mcL LAB HEMETOLOGY METHOD 06/30/2025 12:10 PM EDT [facility] Blood Venous blood specimen / Unknown Venipuncture / Unknown 06/30/2025 10:54 AM EDT 06/30/2025 10:54 AM EDT us Kelley AQUINO LAB BLOOD ORDERABLES Fi nal Result [facility] [address] [place] [address], * Rheumatoid factor (06/30/2025 10:54 AM EDT) [facility] Rheumatoid Factor <10.0 <15.0 I Unit/mL LAB CHEMISTRY METHOD 06/30/2025 3:18 PM EDT [facility] Blood Venous blood specimen / Unknown Venipuncture / Unknown 06/30/2025 10:54 AM EDT 06/30/2025 10:54 AM EDT Kelley Braton [place] LAB BLOOD ORDERABLES Fi nal Result Performing Organization Address City/[facility]/ZIP Co de Phone Number [facility] [address] [place] [address], [place] [phone] * Hemoglobin A1c (06/30/2025 10:54 AM EDT) [facility] Hemoglobin A1C 5.1 <6.5 % LAB CHEMISTRY METHOD 06/30/2025 6:22 PM EDT [facility] Mean Bld Glu Estim. 100 mg/dL LAB CHEMISTRY METHOD 06/30/2025 6:22 PM EDT [facility] Blood Venous blood specimen / Unknown Venipuncture / Unknown 06/30/2025 10:54 AM EDT 06/30/2025 10:54 AM EDT Kelley Barton [place] LAB BLOOD ORDERABLES Fi nal Result [facility] [address] [place] [address], [place] [phone] * Basic metabolic panel (06/30/2025 10:54 AM EDT) [facility] Sodium 137 133 - 145 mmol/L LAB CHEMISTRY METHOD 06/30/2025 3:18 PM EDT [facility] Potassium 4.3 3.5 - 5.5 mmol/L LAB CHEMISTRY METHOD 06/30/2025 3:18 PM T [facility] Chloride 105 96 - 110 mmol/L LAB CHEMISTRY METHOD 06/30/2025 3:18 PM [facility] CO2 27 21 - 32 mmol/L LAB CHEMISTRY METHOD 06/30/2025 3:18 PM [facility] Anion Gap 5 3 - 11 LAB CHEMISTRY METHOD 06/30/2025 3:18 PM EDT [facility] Glucose 87 70 - 100 mg/dL LAB CHEMISTRY METHOD 06/30/2025 3:18 PM [facility] BUN 11 5 - 25 mg/dL LAB CHEMISTRY METHOD 06/30/2025 3:18 PM [facility] Creatinine 0.69 0.50 - 1.10 mg/dL LAB CHEMISTRY METHOD 06/30/2025 3:18 PM [facility] eGFR 118 >=60 mL/min/1. 73m2 LAB CHEMISTRY METHOD 06/30/2025 3:18 PM [facility] Comment:Calculation based on the Chronic Kidney Disease Epidemiology Collaboration (CKD-EPI) equation refit without adjustment for race. BUN/Creatinine Ratio 15.9 LAB CHEMISTRY METHOD 06/30/2025 3:18 PM [facility] Calcium 8.6 8.5 - 10.5 mg/dL LAB CHEMISTRY METHOD 06/30/2025 3:18 PM [facility] Blood Venous blood specimen / Unknown Venipuncture / Unknown 06/30/2025 10:54 AM EDT 06/30/2025 10:54 AM EDT Kelley AQUINO LAB BLOOD ORDERABLES Fi nal Result [facility] [address] [place] [address], * POC glucose manually resulted (06/30/2025 10:34 AM EDT) Glucose POC 100 mg/dL Blood Capillary blood specimen / Unknown 06/30/2025 10:34 AM EDT Kelley AQUINO POINT OF CARE TEST ENTE R/EDIT ORDERABLES Final Result * XR Lumbar Spine 4+ Views (05/04/2025 3:34 PM EDT) Anatomical Region Laterality Modality Spine, L-spine Radiographic Katie ging 05/05/2025 10:2 9 AM EDT Impressions 05/05/2025 10:31 AM EDT Impression: 1. Normal vertebral alignment. No evidence of instability. 2. Disc degenerative changes at L4-L5 and L5-S1. León AQUINO ([id number]) -------- FINAL REPORT -------- Dictated By: Riri Baez Dictated Date: 05/05/2025 10:29 ET Assigned Physician: Riri Baez Reviewed and Electronically Signed By: Riri Baez Signed Date: 05/05/2025 10:31 ET Workstation ID: [id number] Transcribed By: Self Edit Transcribed Date: 05/05/2025 10:29 ET Narrative 05/05/2025 10:31 AM EDT History: Chronic low back pain. Comparison: Lumbar spine MRI 03/20/25 Findings: Upright AP and lateral views of the lumbar spine are supplemented with upright lateral flexion and extension views. There are 5 nonrib-bearing lumbar-type vertebra in normal alignment. No abnormal movement of the lumbar vertebra is seen with flexion and extension positioning. The vertebral bodies maintain normal height. There is mild loss of disc height at L4-L5 and L5-S1, unchanged, consistent with degenerative disc disease. The apophyseal joints are well-maintained. The sacroiliac joints are intact. Procedure Note Riri Baez MD - 05/05/2025 History: Chronic low back pain. Comparison: Lumbar spine MRI 03/20/25 Findings: Upright AP and lateral views of the lumbar spine are supplemented withupright lateral flexion and extension views. There are 5 nonrib-bearing lumbar-type vertebra in normal alignment. Noabnormal movement of the lumbar vertebra is seen with flexion andextension positioning. The vertebral bodies maintain normal height. There is mild loss of discheight at L4-L5 and L5-S1, unchanged, consistent with degenerative discdisease. The apophyseal joints are well-maintained. The sacroiliac joints are intact. IMPRESSION: Impression: 1. Normal vertebral alignment. No evidence of instability. 2. Disc degenerative changes at L4-L5 and L5-S1. Telerad KENIA ([id number]) -------- FINAL REPORT -------- Dictated By: Riri Baez Dictated Date: 05/05/2025 10:29 ET Assigned Physician: Riri Baez Reviewed and Electronically Signed By: Riri Baez Signed Date: 05/05/2025 10:31 ET Workstation ID: [id number] Transcribed By: Self Edit Transcribed Date: 05/05/2025 10:29 ET Florentin AQUINO IMG XR PROCEDURES Final Resul t * XR Hip 2-3 Views Right (05/04/2025 3:34 PM EDT) Anatomical Region Laterality Modality Lower Extremities, Hip Right Radiograp hic Imaging 05/05/2025 10:2 8 AM EDT Impressions 05/05/2025 10:29 AM EDT Impression: No significant abnormality identified in the right hip. Telerad PA ([id number]) -------- FINAL REPORT -------- Dictated By: Riri Baez Dictated Date: 05/05/2025 10:28 ET Assigned Physician: Riri Baez Reviewed and Electronically Signed By: Riri Baez Signed Date: 05/05/2025 10:29 ET Workstation ID: [id number] Transcribed By: Self Edit Transcribed Date: 05/05/2025 10:28 ET Narrative 05/05/2025 10:29 AM EDT History: Right hip pain, chronic. Comparison: No comparison imaging at this institution. Findings: An AP view of the pelvis to include both hips and AP and frog-leg lateral views of the right hip are submitted. The hip joints are well-maintained. Femoral head contours are smooth. No fractures or osseous destructive lesions are seen. There is no significant arthritic change. The pelvic bones are intact. The sacrum and sacroiliac joints are unremarkable. Several pelvic phleboliths are scattered bilaterally. Procedure Note Riri Baez MD - 05/05/2025 History: Right hip pain, chronic. Comparison: No comparison imaging at this institution. Findings: An AP view of the pelvis to include both hips and AP and frog-leg lateralviews of the right hip are submitted. The hip joints are well-maintained. Femoral head contours are smooth. Nofractures or osseous destructive lesions are seen. There is no significantarthritic change. The pelvic bones are intact. The sacrum and sacroiliac joints areunremarkable. Several pelvic phleboliths are scattered bilaterally. IMPRESSION: Impression: No significant abnormality identified in the right hip. Telesilvia AQUINO ([id number]) -------- FINAL REPORT -------- Dictated By: Riri Baez Dictated Date: 05/05/2025 10:28 ET Assigned Physician: Riri Baez Reviewed and Electronically Signed By: Riri Baez Signed Date: 05/05/2025 10:29 ET Workstation ID: [id number] Transcribed By: Self Edit Transcribed Date: 05/05/2025 10:28 ET Florentin AQUINO IMG XR PROCEDURES Final Resul t * MR Cervical Spine wo Contrast (05/01/2025 9:01 AM EDT) Anatomical Region Laterality Modality C-spine, Spine Magnetic Resonan ce 05/01/2025 4:05 PM EDT Impressions 05/03/2025 5:12 PM EDT Impression: 1. Mild multilevel degenerative changes as described above which are minimally progressive from the prior examination. -------- FINAL REPORT -------- Dictated By: June Robertson Dictated Date: 05/01/2025 16:05 ET Assigned Physician: June Robertson Reviewed and Electronically Signed By: June Robertson Signed Date: 05/03/2025 17:12 ET Workstation ID: [id number] Transcribed By: Self Edit Transcribed Date: 05/01/2025 16:05 ET Narrative 05/03/2025 5:12 PM EDT MRI CERVICAL SPINE Clinical Statement: chronic neck pain with LUE radiation Comparison: Cervical spine MRI from 10/27/2022 Technique: Multiplanar, multisequence MRI images of the cervical spine were obtained without intravenous contrast. Findings: There is minimal reversal of the normal cervical lordosis with the apex at C4- C5. The craniocervical junction is normal. Vertebral body and disc space height are maintained. Vertebral body marrow is grossly within normal limits. There is disc desiccation at multiple levels. Cord signal is normal. The visualized posterior fossa structures are normal. C2-C3: Mild broad-based disc bulge without neuroforaminal or spinal canal stenosis C3-C4: Mild broad-based disc bulge, central disc protrusion, mild uncovertebral arthropathy bilaterally with mild bilateral neuroforaminal stenosis, no spinal canal stenosis C4-C5: Broad-based disc bulge and bilateral uncovertebral arthropathy with mild bilateral neuroforaminal stenosis and mild spinal canal stenosis C5-C6: Broad-based disc bulge and central small disc protrusion without neuroforaminal or spinal canal stenosis C6-C7: Broad-based disc bulge and uncovertebral arthropathy at the left without right-sided neural foraminal stenosis or spinal canal stenosis. Mild left neuroforaminal stenosis is present. C7-T1: Broad-based disc bulge and central disc protrusion without neuroforaminal or spinal canal stenosis Procedure Note June Robertson MD - 05/03/2025 MRI CERVICAL SPINE Clinical Statement: chronic neck pain with LUE radiation Comparison: Cervical spine MRI from 10/27/2022 Technique: Multiplanar, multisequence MRI images of the cervical spinewere obtained without intravenous contrast. Findings: There is minimal reversal of the normal cervical lordosis withthe apex at C4-C5. The craniocervical junction is normal. Vertebral bodyand disc space height are maintained. Vertebral body marrow is grosslywithin normal limits. There is disc desiccation at multiple levels. Cordsignal is normal. The visualized posterior fossa structures are normal. C2-C3: Mild broad-based disc bulge without neuroforaminal or spinal canalstenosis C3-C4: Mild broad-based disc bulge, central disc protrusion, milduncovertebral arthropathy bilaterally with mild bilateral neuroforaminalstenosis, no spinal canal stenosis C4-C5: Broad-based disc bulge and bilateral uncovertebral arthropathy withmild bilateral neuroforaminal stenosis and mild spinal canal stenosis C5-C6: Broad-based disc bulge and central small disc protrusion withoutneuroforaminal or spinal canal stenosis C6-C7: Broad-based disc bulge and uncovertebral arthropathy at the leftwithout right-sided neural foraminal stenosis or spinal canal stenosis.Mild left neuroforaminal stenosis is present. C7-T1: Broad-based disc bulge and central disc protrusion withoutneuroforaminal or spinal canal stenosis IMPRESSION: Impression: 1. Mild multilevel degenerative changes as described above which areminimally progressive from the prior examination. -------- FINAL REPORT -------- Dictated By: June Robertson Dictated Date: 05/01/2025 16:05 ET Assigned Physician: June Robertson Reviewed and Electronically Signed By: June Robertson Signed Date: 05/03/2025 17:12 ET Workstation ID: [id number] Transcribed By: Self Edit Transcribed Date: 05/01/2025 16:05 ET Result [facility] Kelley AQUINO IMG MRI PROCEDURES Deonna l Result * Depression Screening (06/27/2024) [facility] Depression Screening abstracted Result [facility] Provider HEALTH MAINTENANCE Final Result * Cervical Cancer Screening: HPV (08/31/2023) [facility] Cervical Cancer Screening: HPV negative, abstracted Result [facility] Provider HEALTH MAINTENANCE Final Result * HIV Screening (04/28/2019) [facility] HIV Screening abstracted Result [facility] Provider HEALTH MAINTENANCE Final Result * Hepatitis C Screening (04/28/2019) [facility] Hepatitis C Screening abstracted Result [facility] Provider HEALTH MAINTENANCE Final Result from Last 3 Months or Most Recently Relevant to Health [place] [phone] [facility] [employer] [facility] 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
== END 2025-07-29 09:46 | disposition home or self-care (01) ==
PROVIDERS: Emergency Provider Emergency Medicine; PCP Internal Medicine
DX: M54.50 Low back pain, unspecified (principal); G89.29 Other chronic pain; D64.9 Anemia, unspecified; Z79.899 Other long term (current) drug therapy
CPT/HCPCS: 99283; 99284

== ENCOUNTER 2025-09-04 17:27 | Emergency (ER) | payer OTHER, SELFPAY ==
--- NOTE | ~2025-09-04 | XR_ITS ---
CLINICAL HISTORY: chest pain 2 view chest x-ray Comparison: CR/AR/SR - XR CHEST 2 VIEWS - 06/12/23 13:14 EDT Findings: No consolidation or effusion. Heart size is normal. No acute fracture. IMPRESSION: 1. No acute findings. This document has been electronically signed by: Andres Beal MD on 09/04/2025 18:23:58
--- NOTE | ~2025-09-04 | CT_ITS ---
CLINICAL HISTORY: dizziness CT head without contrast Comparison: None provided Findings: No intra-axial mass, midline shift, hydrocephalus, or acute hemorrhage. No significant atrophy-like change or white matter disease. The visualized paranasal sinuses and mastoid air cells are normal. The orbits are within normal limits. No skull fracture. IMPRESSION: 1. No acute intracranial findings. This document has been electronically signed by: Andres Beal MD on 09/04/2025 19:34:47
[2025-09-04 17:35] VITALS: BP 130/83; PULSE 72; RESP 18; TEMP 36.6; O2SAT 98; BMI 28.1
--- NOTE | 2025-09-04 17:38 | ECG_ITS ---
Test Reason : DIZZINESS Blood Pressure : */* mmHG Vent. Rate : 70 BPM Atrial Rate : 70 BPM P-R Int : 168 ms QRS Dur : 76 ms QT Int : 370 ms P-R-T Axes : 32 38 7 degrees QTcB Int : 399 ms Normal sinus rhythm Normal ECG When compared with ECG of 21-Sep-2023 18:45, No significant change was found Referred By: Dinesh Esteban Electronically Signed By: Nazario Mendoza
--- NOTE | 2025-09-04 17:38 | ED_ITS ---
HPI - General Adult General Chief complaint: General Medical Stated complaint: sent for UC for neck pain, vertigo Time Seen by Provider: 09/04/25 18:50 Source: patient Mode of arrival: ambulatory Limitations: no limitations History of Present Illness ED Provider: Gaston AQUINO HPI narrative: The patient is a 34-year-old female with history of chronic low back pain following an incident in February, as well as vertigo, and unspecified sleep disorder, presenting to the ED for evaluation of left-sided neck pain and stiffness worse which began 7-10 days ago and is worse with lateral rotation to the left, followed by onset of vertigo 5 days ago which is induced by similar head movements, and tilting of the head while laterally rotated. The patient reports symptoms have occurred multiple times in the past few years, patient reports she has been seen by Neurology and ENT, has undergone multiple MRIs of the neck and head, without a definitive diagnosis, has been previously treated with meclizine and Darling maneuvers, with minimal effect. The patient reports symptoms we will occur for 2-4 weeks and then resolve for 6-9 months before returning. The patient reports she was seen at urgent care today as neck pain was worse overnight with increasing vertigo today, urgent care sent the patient to the ED for evaluation. The patient denies any associated fever/chills, nausea, vomiting, chest pain, shortness of breath, abdominal pain, focal neurological deficit, hearing loss, or vision changes. The patient denies any recent fall, or other blunt head strike/trauma. The patient has been taking ibuprofen and Tylenol without relief. Related Data Home Medications ?Medication ?Instructions ?Recorded ?Confirmed albuterol sulfate 90 mcg/actuation 1 inh inhalation QI D 11/28/21 07/31/22 aerosol inhaler (ProAir HFA) epinephrine 0.15 mg/0.15 mL subcut 11/28/21 07/31/22 auto-injector (for 33 to 66 lb patients) fluticasone propionate 50 1 spray intranasal DAILY 09/0907/31/22 mcg/actuation nasal spray,suspension (Flonase Allergy Relief) cholecalciferol (vitamin D3) 10 10 mcg PO DAILY 05/05/22 mcg (400 unit) capsule cephalexin 500 mg capsule 500 mg PO QID 09/29/22 cyclobenzaprine 5 mg tablet 5 mg PO TID PRN 11/10/22 Previous Rx's ?Medication ?Instructions ?Recorded atogepant 30 mg tablet 30 mg PO .COMPLEX 30 days #3 0 tabs 03/08/22 frovatriptan 2.5 mg tablet 2.5 mg PO .COMPLEX PRN migr bella 05/16/22 headache 30 days #12 tabs fremanezumab-vfrm 225 mg/1.5 mL 225 mg (1.5 mL) subcut .COMPLEX 30 05/26/22 subcutaneous auto-injector (Ajovy) days #1.5 mL rizatriptan 10 mg tablet 5 - 10 mg (0.5 - 1 x 10 mg) PO Q2H 06/12/22 PRN migraine headache 30 days #12 tabs azithromycin 250 mg tablet See Rx Instructions PO .COM PLEX 5 11/10/22 (Zithromax Z-Armani) days #6 tabs prednisone 20 mg tablet 40 mg (2 x 20 mg) PO DAILY 5 days 11/10/22 #10 tabs ondansetron 4 mg disintegrating 4 mg PO Q8H 3 days #9 tabs 09/21/23 tablet gabapentin 100 mg capsule 100 mg PO TID #21 caps 09/11 lidocaine 5 % topical patch 1 patch topical DAILY #15 ea 09/11/24 tramadol 50 mg tablet 50 mg PO BID PRN pain #14 ta bs 07/29/25 acetaminophen 500 mg capsule 1,000 mg (2 x 500 mg) PO .q8 PRN 09/04/25 fever or pain #30 caps diazepam 5 mg tablet (Valium) 5 mg PO BEDTIME PRN musc le spasm 09/04/25 #7 tabs ibuprofen 600 mg tablet 600 mg PO Q8H PRN fever or p ain 09/04/25 #30 tabs Allergies Allergy/AdvReac Type Severity Reaction Status Date / Time oxycodone (From Percocet) Allergy Dizziness Verified 09/04/25 17:36 tizanidine AdvReac Dizziness Verified 09/04/25 17:36 Review of Systems 2 Review of Systems: Yes all other systems are reviewed and are negative PMFSH Past Medical History Medical History Cough Bronchitis Chest congestion Abdominal pain Excessive daytime sleepiness Headache, unspecified Migraines Anemia Neck pain Vertigo Surgical History H/O wisdom tooth extraction H/O nasal septoplasty Family History Family History Mother Bipolar 1 disorder Diabetes Maternal Grandmother COPD (chronic obstructive pulmonary disease) Other Family history of heart disease Family history of lung disease Social History Social History Household Members: Significant Other Alcohol intake: current Alcohol intake frequency: holidays/special occasions only Patient Tobacco Use Status: Never used Tobacco Smoked in Last 30 Days: No Use of substances other than those prescribed or required for medical reasons: No Advance Directives: No Advance Directives Information Provided: Yes Current occupational status: employed Current occupation: [employer] W[employer] Physical Exam ED Vital Signs: Vital Signs - 24 hr 09/04/25 17:35 09/04/25 18:26 09/04/25 23:42 Temperature 97.9 F 97.8 F Pulse Rate 72 76 67 Respiratory Rate 18 18 18 Blood Pressure 130/83 131/83 110/68 Pulse Oximetry 98 98 97 Oxygen Delivery Method Room Air Room Air Room Air 09/04/25 23:42 Temperature 0 F L Pulse Rate 67 Respiratory Rate 18 Blood Pressure 110/68 Pulse Oximetry 97 Oxygen Delivery Method Room Air BMI result Body Mass Index 28.1 CONSTITUTIONAL: The patient appears non-toxic, well nourished and in no acute distress. Vital signs as documented. HEAD: Atraumatic, normocephalic. EYES: EOMs intact, pupils equal, conjunctiva clear, no exudate. ENT: Nares patent, no discharge. Airway patent, no audible stridor, visible mucosa is pink and moist without noted lesions. Bilateral TMs are unremarkable, no perforation, erythema, or bulging. NECK: Trachea is midline, no obvious masses or gross abnormalities. CHEST: Symmetric movement, normal appearance. LUNGS: LS present and CTAB, no w/r/r. Non-labored work of breathing. CARDIAC: Regular Rhythm, S1/S2 appreciated, no murmurs, rubs or gallops. ABDOMEN: Abdomen soft and non-tender x4 quadrants, no palpable masses or organomegaly. : Deferred. EXTREMITIES: Normal tone, moves all extremities spontaneously without reported pain. No obvious acute injury or deformity noted. NEURO: Alert and oriented x3, CN II-XII intact. Cerebellar Functioning intact. Strength 5/5 x4. No sensory or motor deficits. Ambulates with steady gait. Speech clear and appropriate. PSYCH: normal affect, appropriate eye contact, fluid speech, with appropriate response to questioning. No reported suicidality or homicidality. SKIN: Warm, dry, color appropriate, normal turgor. No rashes noted. Course Course Course Narrative: RME: 34 yold female presents to the ED for headache, vertigo for 9 days and some chest pain. Patient denies any shortness of breath. labs, EkG, head CT scan ordered Medications Administered Discontinued Medications Generic Name Dose Route Start Last Admin Trade Name Freq PRN Reason Stop Dose Admin Ketorolac Tromethamine 30 mg 09/04/25 21:03 09/04/25 21:41 Ketorolac Tromethamine 30 Mg/Ml Vial IM 09/04/25 21:04 30 mg ONCE ONE Administration Lorazepam 1 mg 09/04/25 21:03 09/04/25 21:43 Lorazepam 1 Mg Tablet PO 09/04/25 21:04 1 mg ONCE ONE Administration Medical Decision Making Medical Decision Making MDM Narrative: 10:53 PM 09/04/2025 (Celestina AQUINO): The patient is a 34-year-old female with history of chronic low back pain following an incident in February, as well as vertigo, and unspecified sleep disorder, presenting to the ED for evaluation of left-sided neck pain and stiffness worse which began 7-10 days ago and is worse with lateral rotation to the left, followed by onset of vertigo 5 days ago which is induced by similar head movements, and tilting of the head while laterally rotated. The patient reports symptoms have occurred multiple times in the past few years, patient reports she has been seen by Neurology and ENT, has undergone multiple MRIs of the neck and head, without a definitive diagnosis, has been previously treated with meclizine and Darling maneuvers, with minimal effect. The patient reports symptoms we will occur for 2-4 weeks and then resolve for 6-9 months before returning. The patient reports she was seen at urgent care today as neck pain was worse overnight with increasing vertigo today, urgent care sent the patient to the ED for evaluation. The patient denies any associated fever/chills, nausea, vomiting, chest pain, shortness of breath, abdominal pain, focal neurological deficit, hearing loss, or vision changes. The patient denies any recent fall, or other blunt head strike/trauma. The patient has been taking ibuprofen and Tylenol without relief. The patient in the ED appears in no acute distress, no focal neurological deficit appreciated, there is mild tenderness of the posterolateral left neck without evidence of injury. Patient's laboratory evaluation shows no leukocytosis, anemia, electrolyte abnormality, or JOSE. The patient's LFTs are unremarkable. Patient is not . EKG is nonischemic, troponin is negative. The patient's chest x-ray shows no acute cardiopulmonary process. The patient's head CT shows no acute intracranial pathology. The patient's presentation appears consistent with cervicogenic dizziness/cervical vertigo. Patient was treated with Ativan and Toradol. Following interventions in the ED patient reports symptoms have improved. Given the patient's reassuring workup, and improvement with interventions, there was no indication for admission or continued observation. After risks benefit discussion of Ativan versus Valium for muscle relaxer treatment, the patient will be discharged with a short course of Valium, and OTC anti-inflammatories. The patient and spouse state they are comfortable with plan for discharge and outpatient follow up with PCP to further investigate possible cervicogenic pathology, and consider preventative versus abortive antispasmodics, as well as vestibular PT. Admission/Observation Consideration of admission/observation: Escalation of care including admission/observation considered Lab Data MDM Lab Attestation statement: I reviewed the patient's lab results. 09/04/25 17:49 09/04/25 17:49 Labs: Lab Results 09/04/25 Range/Units 17:49 WBC 7.1 (4.8-10.8) X10*3/uL RBC 4.72 (4.20-5.50) X10*6/uL Hgb 13.1 (12.0-16.0) g/dl Hct 39.6 (37.0-47.0) % MCV 83.9 (80.0-98.0) fL MCH 27.8 (27.0-33.0) pg MCHC 33.1 (31.0-35.0) g/dl RDW 12.8 (11.0-16.0) % Plt Count 234 (160-400) X10*3/uL MPV 11.0 (9.4-12.3) fL Immature Gran % (Auto) 1.0 H (0.0-0.4) % Neut % (Auto) 54.0 (45-73) % Lymph % (Auto) 34.6 (20-40) % [place] % (Auto) 7.7 (2-11) % Eos % (Auto) 2.3 (0-4) % Baso % (Auto) 0.4 (0-2) % Lymph # (Auto) 2.5 (1.2-4.9) X10*3/uL [place] # (Auto) 0.6 (0.1-1.2) X10*3/uL Eos # (Auto) 0.2 (0.0-0.4) X10*3/uL Baso # (Auto) 0.0 (0.0-0.2) X10*3/uL Abs Immat Gran (auto) 0.07 H (0.00-0.03) X10*3/uL Absolute Neuts (auto) 3.8 (2.0-8.3) x10*3/uL Absolute Nucleated RBC 0.000 (0.0-0.012) X10*3/uL Nucleated RBC % (auto) 0.0 (0.0-0.2) /100WBC PT 10.3 L (10.9-12.4) SEC INR 0.9 (0.9-1.1) APTT 26.8 (26.7-34.1) SEC Sodium 139 (135-145) mmol/L Potassium 3.7 (3.3-5.1) mmol/L Chloride 103 (96-108) mmol/L Carbon Dioxide 24 (22-29) mmol/L Anion Gap 16 (12-20) BUN 14 (9-16) mg/dL Creatinine 0.69 (0.5-1.4) mg/dL Estim Creat Clear Calc 120.7 Estimated GFR > 60 Random Glucose 93 (60-115) mg/dL Calcium 9.1 (8.4-10.2) mg/dL Total Bilirubin 0.7 (0.0-1.0) mg/dL AST 23 (5-31) U/L ALT 21 (0-31) U/L Alkaline Phosphatase 54 (39-117) U/L Troponin I High Sens < 2.7 (<3.5-17.0) ng/L Total Protein 8.2 H (6.5-8.0) g/dL Albumin 5.0 (3.5-5.0) g/dL Beta HCG, Quant < 2 mIU/mL Independent Interpretation I performed an independent interpretation of an: EKG (EKG shows sinus rhythm with a rate of 70, no evidence of acute ischemia, no ST elevation, no ectopy. QTC 399. Compared to previous on 09/21/2023 there are no significant morphology changes. ) Radiology Impression Discussion of test interpretation with radiology: I have reviewed the radiologist's reading. Radiologist Impression: 2 view chest x-ray Comparison: CR/DE/SR - XR CHEST 2 VIEWS - 06/12/23 13:14 EDT Findings: No consolidation or effusion. Heart size is normal. No acute fracture. IMPRESSION: 1. No acute findings. This document has been electronically signed by: Andres Beal MD on 09/04/2025 18:23:58 CT head without contrast Comparison: None provided Findings: No intra-axial mass, midline shift, hydrocephalus, or acute hemorrhage. No significant atrophy-like change or white matter disease. The visualized paranasal sinuses and mastoid air cells are normal. The orbits are within normal limits. No skull fracture. IMPRESSION: 1. No acute intracranial findings. This document has been electronically signed by: Andres Beal MD on 09/04/2025 19:34:47 External Record Review External record reviewed: Outpatient record and Prior outpatient labs Prescription Management I considered prescription management with: Pain Medication Discharge Plan Discharge Clinical Impression: Cervicogenic dizziness Patient Disposition: Home, Self-Care Instructions: Cervical Strain (ED), Spasmodic Torticollis (ED), Dizziness (ED) Additional Instructions: Thank you for choosing [facility]'s Emergency Department for your care today. Thankfully your laboratory evaluation, CT head, chest x-ray, EKG, and exam today are all reassuring. Your workup shows no evidence of an acute infectious, neurologic, cardiac, metabolic, or other dangerous cause for your symptoms. At this time there is no indication for admission to the hospital or continued ED observation, and it is safe to discharge you home. The characteristics of your symptoms, and they are improvement with anti- inflammatories and antispasmodics, in conjunction with the your reassuring workup both here in the ED and with previous specialists from Neurology and ENT, may indicate that your symptoms are secondary to musculoskeletal inflammation and spasm of your neck resulting in dizziness, a condition known as cervicogenic dizziness. You should take alternating (staggered) doses of ibuprofen 600mg and Tylenol 1000mg every 4 hours as needed for any additional pain. As a part of your care plan, you have also been prescribed a short course of a muscle relaxer called Valium. Please take this medication only for severe pain or spasm that is not relieved by ibuprofen and/or Tylenol, and preferably take it at night. Muscle relaxer medications can carry high risk of unintentional addiction and abuse. Take this medication only as directed and only if absolutely necessary. This medicine can make you drowsy, you are not allowed to drive, operate heavy machinery, or be the sole care provider for children while taking this medication. Please follow up with your primary care physician for re-evaluation, additional management of your symptoms, and continued preventative care. If you do not have a primary care physician, please call the [facility] at [phone] to establish a new primary care physician. While waiting to establish your new primary care physician, you can call our [facility] at [phone] for non-emergency needs. Please return to the emergency department if you develop a severe or sudden change in your symptoms, a fever over 100.4 that does not improve with Tylenol or Ibuprofen, recurrent vomiting, or any other new or worsening symptoms or concerns. Prescriptions: New ibuprofen 600 mg tablet 600 mg PO Q8H PRN (Reason: fever or pain) Qty: 30 0RF acetaminophen 500 mg capsule 1,000 mg PO .q8 PRN (Reason: fever or pain) Qty: 30 0RF diazepam [Valium] 5 mg tablet 5 mg PO BEDTIME PRN (Reason: muscle spasm) Qty: 7 0RF No Action frovatriptan 2.5 mg tablet 2.5 mg PO .COMPLEX PRN (Reason: migraine headache) 30 Days Qty: 12 3RF Rx Instructions: start 2 days prior to onset of menses, may take up to 6 days Ajovy Autoinjector 225 mg/1.5 mL auto-injector 225 mg subcut .COMPLEX 30 Days Qty: 1.5 6RF Rx Instructions: 225 mg subcut monthly; rizatriptan 10 mg tablet 5 - 10 mg PO Q2H PRN (Reason: migraine headache) 30 Days Qty: 12 6RF Rx Instructions: max 2 tabs per day or 4 tabs per week (may take with Aleve) ondansetron 4 mg tablet,disintegrating 4 mg PO Q8H 3 Days Qty: 9 0RF lidocaine 5 % adhesive patch,medicated 1 patch topical DAILY Qty: 15 0RF Rx Instructions: leave on most painful area for up to 12 hrs gabapentin 100 mg capsule 100 mg PO TID Qty: 21 0RF tramadol 50 mg tablet 50 mg PO BID PRN (Reason: pain) Qty: 14 0RF cyclobenzaprine 5 mg tablet 5 mg PO TID PRN azithromycin [Zithromax Z-Armani] 250 mg tablet See Rx Instructions PO .COMPLEX 5 Days Qty: 6 0RF Rx Instructions: take 500 mg today (day 1), then 250 mg for 4 days (days 2-5) PO prednisone 20 mg tablet 40 mg PO DAILY 5 Days Qty: 10 0RF epinephrine 0.15 mg/0.15 mL auto-injector subcut fluticasone propionate [Flonase Allergy Relief] 50 mcg/actuation spray,suspension 1 spray intranasal DAILY Rx Instructions: administer into each nostril albuterol sulfate [ProAir HFA] 90 mcg/actuation HFA aerosol inhaler 1 inh inhalation QID cholecalciferol (vitamin D3) 10 mcg (400 unit) capsule 10 mcg PO DAILY atogepant 30 mg tablet 30 mg PO .COMPLEX 30 Days Qty: 30 6RF Rx Instructions: 30 mg PO nightly; Quilipta complete form completed. cephalexin 500 mg capsule 500 mg PO QID Referrals: Star Caro III, MD [Primary Care Provider, Medical] Clinical Impression: Cervicogenic dizziness Interventions: ED Discharge Assessment Last Done: 09/04/25 23:42 Discharge Date/Time: 09/04/25 23:43 Print Language: Norwegian
[2025-09-04 18:07] LABS: MANUAL DIFF FLAG NO
[2025-09-04 18:15] LABS: INTERNATIONAL NORM RATIO 0.9 (0.9-1.1); Prothrombin Time 10.3 SEC (10.9-12.4)
[2025-09-04 18:18] LABS: Partial Thromboplastin Time 26.8 SEC (26.7-34.1)
[2025-09-04 18:26] VITALS: BP 131/83; PULSE 76; RESP 18; TEMP 36.6; O2SAT 98
[2025-09-04 18:27] LABS: Alanine Aminotransferase 21 U/L (0-31); Albumin Level 5.0 g/dL (3.5-5.0); Alkaline Phosphatase 54 U/L (39-117); Anion Gap 16 (12-20); Aspartate Amino Transferase 23 U/L (5-31); Blood Urea Nitrogen 14 mg/dL (9-16); Calcium 9.1 mg/dL (8.4-10.2); Carbon Dioxide 24 mmol/L (22-29); Chloride 103 mmol/L (96-108); Creatinine Clr Calc Pharmacy 120.7; Estimated Glomerular Filt Rate > 60; Potassium 3.7 mmol/L (3.3-5.1); Sodium 139 mmol/L (135-145); Total Protein 8.2 g/dL (6.5-8.0)
[2025-09-04 18:29] LABS: Troponin-I High Sensitivity < 2.7 ng/L (<3.5-17.0)
[2025-09-04 18:35] LABS: Hematocrit 39.6 % (37.0-47.0); Hemoglobin 13.1 g/dl (12.0-16.0); Imm Gran Abs Auto 0.07 X10*3/uL (0.00-0.03); Imm Gran Pct Auto 1.0 % (0.0-0.4); Lymphocytes Absolute Auto 2.5 X10*3/uL (1.2-4.9); Mean Corpuscular HGB Conc 33.1 g/dl (31.0-35.0); Mean Corpuscular Hemoglobin 27.8 pg (27.0-33.0); Mean Corpuscular Volume 83.9 fL (80.0-98.0); NRBC Abs Auto 0.000 X10*3/uL (0.0-0.012); NRBC Pct Auto 0.0 /100WBC (0.0-0.2); Platelet Count 234 X10*3/uL (160-400); Red Blood Count 4.72 X10*6/uL (4.20-5.50); White Blood Count 7.1 X10*3/uL (4.8-10.8)
--- OUTSIDE RECORDS SUMMARY | 2025-09-04 18:41 | XMS_ITS | Clinical Summary ---
Author Organization [facility] Address [address] [place] [address] Care Team Providers Care Civil Engineer'S Aide Name Role Phone Pcp, No Primary Care [...] PCV) 2011 Pap Smear (Ages 21-65) 2013 DTaP/Tdap/Td Vaccines (2 - Td or Tdap) 07/23/2023 Influenza Vaccine 06/19/2025 COVID-19 Vaccine ( - 2023- season) 2025 HPV Vaccines (No Doses Required) Completed [facility] [place] [id number] Care Teams Civil Engineer'S Aide Relationship Specialty Start Date End Date Pcp, No [address] [place] [address] PCP - General 02/08/23
--- OUTSIDE RECORDS SUMMARY | 2025-09-04 18:41 | XMS_ITS | Clinical Summary ---
Author Organization [facility] Address [address] [place] [address] Care Team Providers Care Child Development Teacher Name Role Phone Liberty Ball APRN Primary [...] Advance Directives For more information, please contact: [phone] Documents on File Type Date Recorded Patient Associate Theatre Professor Expl anation Advance Directive and Living Will 07/18/2016 2:52 PM Care Teams Child Development Teacher Relationship Specialty Start Date End Date Liberty Ball APRN [address] [place] [address] [phone] PCP - General Family Medicine 04/06/16
--- OUTSIDE RECORDS SUMMARY | 2025-09-04 18:41 | XMS_ITS | Encounter Summary ---
Author Organization [facility] Address [address] [place] [id number] Care Team Providers Care Head Of Science Name Role Phone Pcp, No Primary Care Provider Unavailabl e Liberty Ball APRN Primary Care Provider U Monica Javier MD Primary Care Provider [phone] Pcp, No Primary Care Provider Unavailabl e Encounter Details Date Type Department Care Team (Late st Contact Info) Description 04/06/2016 Scanned Document [address] [address] Provider, Generic Social History Tobacco Use Types [...] on filedocumented in this encounter Care Teams Head Of Science Relationship Specialty Start Date End Date Pcp, No PCP - General General Medicine 01/03/16 05/18/16 Liberty Ball APRN PCP - General Family Medicine 05/19/16 10/31/16 Monica Macdonald MD PCP - General Internal Medicine 11/01/16 02/07/23 Pcp, No [address] [place] [address] PCP - General 02/08/23 documented as of this encounter
--- OUTSIDE RECORDS SUMMARY | 2025-09-04 18:41 | XMS_ITS | Encounter Summary ---
Author Organization [facility] Address [address] [place] [address] Care Team Providers Care Guard Driver Name Role Phone Liberty Ball APRN Primary Care Provider U Monica Javier MD Primary Care Provider [phone] Pcp, No Primary Care Provider Unavailabl e Encounter Details Date Type Department Care Team (Late st Contact Info) Description 08/15/2016 Scanned Document [address] [id number] Provider, Generic Social History Tobacco [...] on filedocumented in this encounter Care Teams Guard Driver Relationship Specialty Start Date End Date Liberty Ball APRN PCP - General Family Medicine 05/19/16 10/31/16 Monica Macdonald MD PCP - General Internal Medicine 11/01/16 02/07/23 Pcp, No [address] [place] [address] PCP - General 02/08/23 documented as of this encounter
--- OUTSIDE RECORDS SUMMARY | 2025-09-04 18:41 | XMS_ITS | Clinical Summary ---
Author Organization [facility] [address] [place] [address] [place] [phone] Phone Care Team Providers Care Cardiovascular Surgeon Name Role Phone Star Caro MD Primary Care Provider [phone] Allergies Active Allergy Reactions Criticality Noted Date [...] of breath (cough). 6.7 g 5 Active traMADoL (ULTRAM) 50 mg tablet 5 Active predniSONE (DELTASONE) 10 mg tabletIndication s:Allergic contact dermatitis, unspecified trigger Take 30 mg PO daily for 3 days, then take 20 mg PO daily for 3 days, then 10 mg PO daily for 3 days, then stop 18 tablet 5 Active Active Problems Problem Noted Date Diagnosed Date Right hip pain 05/01/2025 Assessment & Plan (05/01/2025 11:52 AM EDT): Ms. Johnson describes right hip pain since a lifting [...] & Plan (05/01/2025 11:59 AM EDT): Ms. Johnson scribes low back pain with radiation down [...] was no neural impingement. I told Ms. Johnson that I did not see anything on [...] Overview (01/14/2024): Last Assessment & Plan: Ms. Johnson returns describing significant dizziness over the past [...] images from her cervical spine MRI at [facility] [place] dated 10/27/2022 which shows straightening of the [...] Encounters Date Type Department Care Team Description 08/10/2025 9:00 AM EDT Office Visit [address] [phone] Mary Jane Dias NP Encounter for annual physical exam (Primary Dx); Allergic contact dermatitis, unspecified trigger; Palpitations 07/10/[address] [place] [address] July Daniels MA 06/30/2025 10:30 AM EDT Office Visit [address] [phone] Kelley Barton PA Hypoglycemia (Primary Dx); Screening for diabetes mellitus; Screening for lipid disorders; Polyarthralgia; Vertigo; Excessive cerumen in left ear canal; Asthma, exercise induced 06/26/2025 Nurse Triage [address] [phone] Star Caro MD from Last 3 Months Immunizations Immunization Administration Dates Next Due Hep B, Unspecified 03/25/2018 MMR, measles mumps and rubel la Live (Priorix; M-M-R II) 12mo and older 03/25/2018 Tdap Tetanus diptheria acell ular pertussis (Boostrix; Adacel) 7yo and older 01/18/2021,07/23/2013 Surgical History Surgery Date Site/Laterality Comments WISDOM TOOTH EXTRACTION PROCEDURE: HISTORICAL WISDOM TEETH EXTRACTION NASAL SEPTUM SURGERY PROCEDURE: ID REPAIR NASAL SEPTAL PERFORATIONS; COMMENT: septoplasty Medical [...] you may not have stable housing? No 08/10/2025 Food Access & Nutrition Answer Date Rec orded Do you have access to a vari ety of food including fruits and vegetables? Yes 08/10/2025 Access to Healthcare Answer Date Record ed Within the last 3 months, ho w many times did you visit the emergency department for your medical care? 2 08/10/2025 Health Literacy Answer Date Recorded How often do you need to hav e someone help you when you read instructions, pamphlets, or other written material from your doctor or pharmacy? Never 08/10/2025 Caregiver: How often do you need to have someone help you when you read instructions, pamphlets, or other written material from your doctor or pharmacy? Not on file 08/10/2025 Financial Risk Answer Date Recorded How hard is it for you to pa y for the very basics like food, housing, medical care, and air conditioning / heating? Not very hard 08/10/2025 Transportation Answer Date Recorded Has the lack of transportati on kept you from meetings, work, or from getting things needed for daily living? No Has the lack of transportati on kept you from medical appointments or from getting medications? No 08/10/2025 Social Isolation Answer Date Recorded How often do you feel lonely or isolated from those around you? Sometimes 08/10/2025 Food Risk Answer Date Recorded Within the past 12 months we worried whether our food would run out before we got money to buy more. Never true 08/10/2025 Within the past 12 months th e food we bought just didn't last and we didn't have money to get more. Never true 08/10/2025 Dependent Care Answer Date Recorded Do you need help finding or paying for care for your loved ones. For example, children's ministries director or elderly care for an older adult? No 08/10/2025 Education Answer Date Recorded Do you think completing more education or training, like finishing a GED, going to college, or learning a trade, would be helpful for you? No 08/10/2025 Employment and Income Answer Date Recor ded During the last four weeks, have you been actively looking for work? No 08/10/2025 Living Situation Answer Date Recorded What is your living situation? Unrecognized valu e 08/10/2025 Comments No Sex and Gender Information Value [...] Sign Reading Time Taken Comments Blood Pressure 123/79 08/10/2025 8:57 AM EDT Pulse 65 08/10/2025 8:57 AM EDT Temperature 36.8 C (98.2 F) 08/10/2025 8:57 AM EDT Respiratory Rate 16 08/10/2025 8:57 AM EDT Oxygen Saturation 98% 06/30/2025 10:27 AM EDT Inhaled Oxygen Concentration - - Weight 78.5 kg (173 lb) 08/10/2025 8:57 AM EDT Height 166.4 cm (5' 5.5 ) 08/10/2025 8:57 AM EDT Body Mass Index 28.35 08/10/2025 8:57 AM EDT Plan of Treatment Health Maintenance Due Date Last Done Comments Pneumococcal Vaccine: Pediatrics (0 to 5 Years) and At-Risk Patients (6 to 49 Years) (1 of 2 - PCV) 2011 Hepatitis B Vaccines (2 of 3 - 19+ 3-dose series) 04/22/2018 03/25/2018 HPV Vaccines (1 - 3-dose SCD M series) 2019 COVID-19 Vaccine ( - 2023-2 5 season) 2025 Influenza Vaccine (#1) 2025 Social Influencers of Health Screening 08/10/2026 08/10/2025, 12/26/2023 Cervical Cancer Screening: HPV 08/31/2028 08/31/2023 Cholesterol Screening (Lipid Panel) 06/30/2030 06/30/2025, 06/27/2024, 06/27/2024 DTaP,Tdap,and Td Vaccines (3 - Td or Tdap) 01/18/2031 01/18/2021, 07/23/2013 RSV Immunization Adult Patients (1 - 1-dose 75+ series) 2067 MMR Vaccines Aged Out 03/25/2018 No longer eligi ble based on patient's age to complete this topic HIV Screening Completed 04/28/2019 Hepatitis C Screening Completed 04/28/2019 Depression Screening Completed 08/10/2025, 06/27/2024 HIB Vaccines Aged Out No longer [...] GLUCOSE Routine 06/30/2025 10:34 AM EDT Hypoglycemia HM DEPRESSION SCREENING Routine 06/27/2024 HM HPV Routine 08/31/2023 HM HEPATITIS C SCREENING Routine 04/28/2019 HM HIV SCREENING Routine 04/28/2019 from Last 3 Months or Most Recently Relevant to Health Maintenance Results * Lipid panel with reflex to direct LDL (06/30/2025 10:54 AM EDT) Cholesterol 188 0 - 200 mg/dL LAB CHEMISTRY METHOD 06/30/2025 3:18 PM EDT [facility] Triglycerides 122 0 - 150 mg/dL LAB CHEMISTRY METHOD 06/30/2025 3:18 PM EDT [facility] HDL 66 >=40 mg/dL LAB CHEMISTRY METHOD 06/30/2025 3:18 PM EDT [facility] LDL Calculated 98 0 - 100 mg/dL LAB CHEMISTRY METHOD 06/30/2025 3:18 PM EDT [facility] Comment:Estimated LDL Calcul ated using equation: Total cholesterol - HDL cholesterol - (Triglycerides/5) VLDL Cholesterol Chevy 24.4 mg/dL LAB CHEMISTRY METHOD 06/30/2025 3:18 PM EDT [facility] Non HDL Chol. (LDL+VLDL) 122 <145 mg/dL LAB CHEMISTRY METHOD 06/30/2025 3:18 PM EDT [facility] Chol/HDL Ratio 2.8 0.0 - 4.4 LAB CHEMISTRY METHOD 06/30/2025 3:18 PM EDT [facility] Blood Venous blood specimen / Unknown Venipuncture / Unknown 06/30/2025 10:54 AM EDT 06/30/2025 10:54 AM EDT Kelley AQUINO LAB BLOOD ORDERABLES Fi nal Result Performing Organization Address [facility]/ZIP Co de Phone Number [facility] [address] [place] [address], * ALBERTO IFA with titer and pattern (06/30/2025 10:54 AM EDT) ALBERTO Negative Negative 07/01/2025 1:47 PM EDT [facility] Comment:ALBERTO performed by ind irect immunofluorescence (IFA) using HEp-2 substrate. Blood Venous blood specimen / Unknown Venipuncture / Unknown 06/30/2025 10:54 AM EDT 06/30/2025 10:54 AM EDT Kelley AQUINO LAB BLOOD ORDERABLES Fi nal Result [facility] [address] [place] [address], * (ABNORMAL) Complete blood count (06/30/2025 10:54 AM EDT) [facility] WBC 6.3 4.8 - 10.8 K/mcL LAB HEMETOLOGY METHOD 06/30/2025 12:10 PM EDT [facility] RBC 4.40 3.80 - 4.80 M/mcL LAB HEMETOLOGY METHOD 06/30/2025 12:10 PM EDT [facility] Hemoglobin 12.2 11.5 - 16.0 g/dL LAB HEMETOLOGY METHOD 06/30/2025 12:[address] [facility] Hematocrit 38.4 35.0 - 47.0 % LAB HEMETOLOGY METHOD 06/30/2025 12:[address] [facility] MCV 86.9 79.0 - 98.0 FL LAB HEMETOLOGY METHOD 06/30/2025 12:[address] [facility] MCH 27.6 27.0 - 32.0 pcg LAB HEMETOLOGY METHOD 06/30/2025 12:[address] [facility] MCHC 31.8(L) 32.0 - 37.0 g/dL LAB HEMETOLOGY METHOD 06/30/2025 12:[address] [facility] RDW 12.3 11.0 - 15.0 % LAB HEMETOLOGY METHOD 06/30/2025 12:[address] [facility] Platelets 249 130 - 400 K/mcL LAB HEMETOLOGY METHOD 06/30/2025 12:[address] [facility] MPV 11.3(H) 7.0 - 11.0 FL LAB HEMETOLOGY METHOD 06/30/2025 12:[address] [facility] NRBC 0.0 <1.0 % LAB HEMETOLOGY METHOD 06/30/2025 12:10 PM EDT [facility] NRBC Absolute 0.00 <0.10 K/mcL LAB HEMETOLOGY METHOD 06/30/2025 12:10 PM EDT [facility] Blood Venous blood specimen / Unknown Venipuncture / Unknown 06/30/2025 10:54 AM EDT 06/30/2025 10:54 AM EDT [facility] LAB BLOOD ORDERABLES Fi nal Result Performing Organization Address City/[facility]/ZIP Co de Phone Number [facility] [address] [place] [address], * Rheumatoid factor (06/30/2025 10:54 AM EDT) Rheumatoid Factor <10.0 <15.0 I Unit/mL LAB CHEMISTRY METHOD 06/30/2025 3:18 PM EDT [facility] Blood Venous blood specimen / Unknown Venipuncture / Unknown 06/30/2025 10:54 AM EDT 06/30/2025 10:54 AM EDT [facility] LAB BLOOD ORDERABLES Fi nal Result Performing Organization Address City/[facility]/ZIP Co de Phone Number [facility] [address] [place] [address], * Hemoglobin A1c (06/30/2025 10:54 AM EDT) Hemoglobin A1C 5.1 <6.5 % LAB CHEMISTRY METHOD 06/30/2025 6:22 PM EDT [facility] Mean Bld Glu Estim. 100 mg/dL LAB CHEMISTRY METHOD 06/30/2025 6:22 PM EDT [facility] Blood Venous blood specimen / Unknown Venipuncture / Unknown 06/30/2025 10:54 AM EDT 06/30/2025 10:54 AM EDT Kelley AQUINO LAB BLOOD ORDERABLES Fi nal Result [facility] [address] [place] [address], [place] [phone] * Basic metabolic panel (06/30/2025 10:54 AM EDT) Sodium 137 133 - 145 mmol/L LAB CHEMISTRY METHOD 06/30/2025 3:18 PM EDT [facility] Potassium 4.3 3.5 - 5.5 mmol/L LAB CHEMISTRY METHOD 06/30/2025 3:[address] [facility] Chloride 105 96 - 110 mmol/L LAB CHEMISTRY METHOD 06/30/2025 3:[address] [facility] CO2 27 21 - 32 mmol/L LAB CHEMISTRY METHOD 06/30/2025 3:[address] [facility] Anion Gap 5 3 - 11 LAB CHEMISTRY METHOD 06/30/2025 3:[address] [facility] Glucose 87 70 - 100 mg/dL LAB CHEMISTRY METHOD 06/30/2025 3:[address] [facility] BUN 11 5 - 25 mg/dL LAB CHEMISTRY METHOD 06/30/2025 3:[address] [facility] Creatinine 0.69 0.50 - 1.10 mg/dL LAB CHEMISTRY METHOD 06/30/2025 3:[address] [facility] eGFR 118 >=60 mL/min/1. 73m2 LAB CHEMISTRY METHOD 06/30/2025 3:[address] [facility] Comment:Calculation based on the Chronic Kidney Disease Epidemiology Collaboration (CKD-EPI) equation refit without adjustment for race. BUN/Creatinine Ratio 15.9 LAB CHEMISTRY METHOD 06/30/2025 3:[address] [facility] Calcium 8.6 8.5 - 10.5 mg/dL LAB CHEMISTRY METHOD 06/30/2025 3:18 PM EDT [facility] Blood Venous blood specimen / Unknown Venipuncture / Unknown 06/30/2025 10:54 AM EDT 06/30/2025 10:54 AM EDT Kelley AQUINO LAB BLOOD ORDERABLES Fi nal Result [facility] [address] [place] [address], [place] [phone] * POC glucose manually resulted (06/30/2025 10:34 AM EDT) [facility] Glucose POC 100 mg/dL Blood Capillary blood specimen / Unknown 06/30/2025 10:34 AM EDT Kelley AQUINO POINT OF CARE TEST ENTE R/EDIT ORDERABLES Final Result * Depression Screening (06/27/2024) Pathologist [facility] Depression Screening abstracted [facility] Provider HEALTH MAINTENANCE Final Result * Cervical Cancer Screening: HPV (08/31/2023) [facility] Cervical Cancer Screening: HPV negative, abstracted [facility] Provider HEALTH MAINTENANCE Final Result * HIV Screening (04/28/2019) [facility] HIV Screening abstracted Historical Provider HEALTH MAINTENANCE Final Result * Hepatitis C Screening (04/28/2019) [facility] Hepatitis C Screening abstracted Historical Provider HEALTH MAINTENANCE Final Result from Last 3 Months or Most Recently Relevant to Health Maintenance Insurance [facility] PUBLIC PLANS GENERIC Care Teams Cardiovascular Surgeon Relationship Specialty Start Date End Date Star Caro MD [address] [place] [phone] PCP - General Internal Medicine 09/23/24
--- OUTSIDE RECORDS SUMMARY | 2025-09-04 18:41 | XMS_ITS | Encounter Summary ---
Author Organization [facility] Address [address] [place] [address] Care Team Providers Care Tandem Mill Sticker Name Role Phone Pcp, No Primary Care Provider Unavailabl e Liberty Ball APRN Primary Care Provider U Monica Javier MD Primary Care Provider [phone] Pcp, No Primary Care Provider Unavailabl e Encounter Details Date Type Department Care Team (Late st Contact Info) Description 05/17/2016 Scanned Document [address] [id number] Provider, Generic Social History Tobacco Use Types [...] on filedocumented in this encounter Care Teams Tandem Mill Sticker Relationship Specialty Start Date End Date Pcp, No PCP - General General Medicine 01/03/16 05/18/16 Liberty Ball APRN PCP - General Family Medicine 05/19/16 10/31/16 Monica Macdonald MD PCP - General Internal Medicine 11/01/16 02/07/23 Pcp, No [address] [place] [address] PCP - General 02/08/23 documented as of this encounter
--- OUTSIDE RECORDS SUMMARY | 2025-09-04 18:41 | XMS_ITS | Encounter Summary ---
Author Organization [facility] Address [address] [place] [address] Care Team Providers Care Supervisor [employer]liance [employer] Name Role Phone Liberty Ball APRN Primary Care Provider U Monica Javier MD Primary Care Provider [phone] Pcp, No Primary Care Provider Unavailabl e Encounter Details Date Type Department Care Team (Late st Contact Info) Description 06/27/2016 Scanned Document [address] [phone] Provider, Generic Social History Tobacco [...] on filedocumented in this encounter Care Teams Supervisor [employer] Relationship Specialty Start Date End Date Liberty Ball APRN PCP - General Family Medicine 05/19/16 10/31/16 Monica Macdonald MD PCP - General Internal Medicine 11/01/16 02/07/23 Pcp, No [address] [place] [address] PCP - General 02/08/23 documented as of this encounter
--- OUTSIDE RECORDS SUMMARY | 2025-09-04 18:41 | XMS_ITS | Encounter Summary ---
Author Organization [facility] Address [address] [place] [address] Care Team Providers Care Machine Boss Name Role Phone Monica Macdonald MD Primary Care Provider [phone] Pcp, No Primary Care Provider Unavailabl e Encounter Details Date Type Department Care Team (Late st Contact Info) Description 03/25/2018 Scanned Document [address] [phone] Unknown Unknow Provider Address Social History Tobacco [...] on filedocumented in this encounter Care Teams Machine Boss Relationship Specialty Start Date End Date Monica Macdonald MD PCP - General Internal Medicine 11/01/16 02/07/23 Pcp, No [address] [place] [address] PCP - General 02/08/23 documented as of this encounter
[2025-09-04 23:42] VITALS: BP 110/68; PULSE 67; RESP 18; TEMP -17.7; TEMP 0; O2SAT 97
== END 2025-09-04 23:43 | disposition home or self-care (01) ==
PROVIDERS: Physician Assistant; Emergency Provider Emergency Medicine; PCP Internal Medicine
DX: M54.2 Cervicalgia (principal); R42 Dizziness and giddiness; M54.50 Low back pain, unspecified; Z79.899 Other long term (current) drug therapy
CPT/HCPCS: 36415; 70450; 71046; 80053; 84484; 84702; 85025; 85610; 85730; 93005; 96372; 99284; J1885

== ENCOUNTER → 2025-09-04 17:38 | Outpatient (BNV) | payer OTHER, SELFPAY | PROVIDERS: Emergency Provider Emergency Medicine; PCP Internal Medicine; Visit Provider Internal Medicine Cardiovascular Disease | DX: R42 Dizziness and giddiness (principal) | CPT/HCPCS: 93010 ==

== ENCOUNTER → 2025-09-04 17:38 | Outpatient (BNV) | payer OTHER, SELFPAY | PROVIDERS: Emergency Provider Emergency Medicine; PCP Internal Medicine; Visit Provider Radiology Diagnostic Radiology | DX: R42 Dizziness and giddiness (principal); R07.9 Chest pain, unspecified | CPT/HCPCS: 70450; 71046 ==